=== PATIENT | male | born 1945 | race Caucasian/White ===

== ENCOUNTER → 2016-04-16 | Outpatient (CLI) | payer MEDICARE | LOC: M HL 10:54 | PROVIDERS: ATTEND Nurse Practitioner Family | DX: E11.9 Type 2 diabetes mellitus without complications (principal); E78.5 Hyperlipidemia, unspecified; F17.200 Nicotine dependence, unspecified, uncomplicated ==

== ENCOUNTER → 2016-07-24 | Outpatient (REF) | payer MEDICARE ==
[2016-07-24 20:28] LABS: ALBUMIN 3.6 GM/DL (3.2-5.2); ALBUMIN/GLOBULIN RATIO 1.09 (1.00-1.93); ALKALINE PHOSPHATASE 85 U/L (45-117); ALT/SGPT 33 U/L (12-78); ANION GAP 8 MEQ/L (8-16); AST/SGOT 20 U/L (15-37); BILIRUBIN,TOTAL 0.5 MG/DL (0.2-1.0); BLOOD UREA NITROGEN 18 MG/DL (7-18); CALCIUM LEVEL 8.4 MG/DL (8.8-10.2); CARBON DIOXIDE LEVEL 28 MEQ/L (21-32); CHLORIDE LEVEL 103 MEQ/L (98-107); CHOLESTEROL LEVEL 146 MG/DL (<200); CREATININE FOR GFR 0.95 MG/DL (0.70-1.30); GLOMERULAR FILTRATION RATE > 60.0 (>49); GLUCOSE, FASTING 235 MG/DL (80-110); POTASSIUM SERUM 4.3 MEQ/L (3.5-5.1); SODIUM LEVEL 139 MEQ/L (136-145); TOTAL PROTEIN 6.9 GM/DL (6.4-8.2); TRIGLYCERIDES LEVEL 123 MG/DL (<150)
== END ==
LOC: M SFHCPLAZ 12:33
PROVIDERS: ATTEND Nurse Practitioner Family
DX: E78.5 Hyperlipidemia, unspecified (principal); E11.9 Type 2 diabetes mellitus without complications

== ENCOUNTER → 2016-08-23 | Outpatient (REF) | payer MEDICARE | LOC: M LAB REF 17:02 | PROVIDERS: ATTEND Specialist | DX: C02.1 Malignant neoplasm of border of tongue (principal) ==

== ENCOUNTER → 2016-09-03 | Outpatient (CLI) | payer MEDICARE ==
--- NOTE | 2016-09-03 17:26 | REP ---
CHEST, TWO VIEWS: REASON: Hyperlipidemia. COMPARISON: None. Cardiomediastinal silhouette is within normal limits. The heart is not enlarged. The pleural angles are sharp. In the right lung midlung zone there is a small subcentimeter sized discoid density of uncertain etiology. Two frontal views were obtained and this is seen on both views. The osseous structures are within normal limits. IMPRESSION: Possible right lung lesion in the lower lobe region without priors for comparison. Consider further evaluation with chest CT. Signed by Wilfredo Alvares DO 09/04/2016 10:07 A
== END ==
LOC: M RAD 13:26 → M LAB 13:26
PROVIDERS: ATTEND Nurse Practitioner Family
DX: R93.8 Abnormal findings on diagnostic imaging of other specified body structures (principal); E78.5 Hyperlipidemia, unspecified; F17.200 Nicotine dependence, unspecified, uncomplicated

== ENCOUNTER → 2016-09-14 | Outpatient (CLI) | payer MEDICARE ==
[~2016-09-14] MED LIST: ALBU17IN INH; ASPI1TAB PO; FLOM5CAP PO; HYDR1SOL PO; IBUP-1114 PO; LIPI20TA PO; LISI-542 PO; LORA10TA2 PO; METF500T13 PO; PERC5TAB12 PO; SILV40CR EXT
[2016-09-14 12:53] LABS: MEAN CORPUSCULAR HEMOGLOBIN 31.5 pg (27.0-33.0); MEAN CORPUSCULAR HGB CONC 35.2 g/dl (32.0-36.5); MEAN CORPUSCULAR VOLUME 89.5 fl (80.0-96.0); RED CELL DISTRIBUTION WIDTH 13.4 % (11.5-14.5); WHITE BLOOD COUNT 7.3 K/mm3 (4.0-10.0)
== END ==
LOC: M LAB 11:40
PROVIDERS: ATTEND Anesthesiology
DX: Z01.812 Encounter for preprocedural laboratory examination (principal); R93.8 Abnormal findings on diagnostic imaging of other specified body structures; E78.5 Hyperlipidemia, unspecified; E11.9 Type 2 diabetes mellitus without complications

== ENCOUNTER → 2016-09-14 | Outpatient (CLI) | payer MEDICARE ==
--- NOTE | 2016-09-14 11:44 | REP ---
Clinical: Abnormal chest x-ray findings. Comparison: X-ray dated 09/03/2016. Findings: The bilateral lung grullon are essentially well-aerated and clear. The suspected lesion in the right mid lung zone corresponds to a calcified granuloma in the right middle lobe along with calcified right hilar lymph nodes compatible with prior granulomatous disease. No acute pulmonary parenchymal consolidation, significant nodule or mass lesion. Tracheobronchial tree is patent. No pleural effusion/reaction or pneumothorax. Mediastinum is grossly unremarkable with mild atherosclerotic changes to the coronary arteries and thoracic aorta noted. Surrounding musculoskeletal structures are intact. Limited upper abdomen demonstrates large cystic changes posterior to the left kidney which may reflect renal cysts. Impression: 1. Suspicious abnormality on recent chest x-ray correlates to chronic calcified granuloma and associated calcified mediastinal/hilar lymph nodes suggests prior granulomatous disease. 2. No acute mediastinal or pleuroparenchymal process. 3. Large cystic changes posterior to the left kidney likely renal cysts may be followed by ultrasound if necessary. Signed by Anselmo Davila MD 09/14/2016 11:36 A
== END ==
LOC: M RAD 10:35
PROVIDERS: ATTEND Nurse Practitioner Family
DX: Z01.812 Encounter for preprocedural laboratory examination (principal); R93.8 Abnormal findings on diagnostic imaging of other specified body structures; E78.5 Hyperlipidemia, unspecified; E11.9 Type 2 diabetes mellitus without complications

== ENCOUNTER 2016-09-24 09:30 | Inpatient (IN) | payer MEDICARE ==
[~2016-09-24] VITALS: Ht 177.8 cm; Wt 122.7 kg
[~2016-09-24 09:30] MED LIST changes: -IBUP-1114 PO; -LISI-542 PO; -PERC5TAB12 PO; -SILV40CR EXT
[2016-10-08] MEDS ORDERED: IBUP-1114 PO (11:44)
[2016-10-08] MEDS ORDERED: LISI-542 PO (11:44)
--- NOTE | 2016-10-18 07:37 | HPE ---
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 HISTORY OF PRESENT ILLNESS: This is a 70-year-old smoking patient with history of progressive tongue lesion that has become more and more painful on the left side of his tongue. Office evaluation included a biopsy of this, which demonstrated basal squamous cell carcinoma. PAST MEDICAL HISTORY: He has a history of some cardiac disease, as well as diabetes. MEDICATIONS: - metformin - tamsulosin - atorvastatin - aspirin. ALLERGIES: None. PHYSICAL EXAMINATION: He is a well-fed, 70-year-old, in mild distress with lesion in the mouth. Nasal cavity was clear. Oral cavity show an ulcerative 2 to 3 cm mass on the left lateral oral tongue anteriorly. Larynx was free of any masses. Bimanual palpation of the floor of the mouth revealed no masses. Palpation of the neck reveals no palpable cervical adenopathy. Breath sounds are diminished, but heard bilaterally. The heart sounds are normal. The abdomen is benign. Extremities without edema. 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 He is also followed by cardiology.
[2016-10-18] MEDS ORDERED: LR 1,000 ML IV ONE (10:00)
[2016-10-18] MEDS ORDERED: dexameTHASONE 4 MG/ML 1ML VIAL (J1100) As Ordered ONE (11:53)
[2016-10-18] MEDS ORDERED: fentaNYL 250 MCG/5 ML INJECTION (J3010) As Ordered ONE (11:53)
[2016-10-18] MEDS ORDERED: PROPOFOL 200 MG/20 ML VIAL As Ordered ONE (11:53)
[2016-10-18] MEDS ORDERED: ROCURONIUM BROMIDE 50 MG/5 ML VIAL/SYRINGE As Ordered ONE ×2 (11:53→14:04)
[2016-10-18] MEDS ORDERED: LIDOCAINE 2% INJ 100 MG/5 ML SDV (FOR ANES.) As Ordered ONE (11:53)
[2016-10-18] MEDS ORDERED: MIDAZOLAM INJ 2 MG/2 ML VIAL (J2250) As Ordered ONE (11:53)
[2016-10-18] MEDS ORDERED: LIDOCAINE W/EPINEPHRINE 1% 20ML VIAL As Ordered ONE (12:01)
[2016-10-18] MEDS ORDERED: BACITRACIN OINT 30GM As Ordered ONE (12:01)
[2016-10-18] MEDS ORDERED: METHYLENE BLUE 0.5% (5MG/ML) 10 ML AMP (PROVAYBLUE)(Q9968 PER 1MG) As Ordered ONE (12:21)
[2016-10-18] MEDS ORDERED: HYDROmorphone HCL 2 MG/ML 1ML VIAL (J1170) As Ordered ONE (13:29)
[2016-10-18] MEDS ORDERED: REMIFENTANIL 1MG 3ML VIAL As Ordered ONE (13:40)
[2016-10-18] MEDS ORDERED: ePHEDrine SULFATE 25 MG/5 ML(5MG/ML) SYRINGE As Ordered ONE (13:55)
[2016-10-18] MEDS ORDERED: PHENYLephrine HCL 500 MCG/5 ML (100MCG/ML) SYRINGE (J2370) As Ordered ONE (14:15)
[2016-10-18] MEDS ORDERED: GLYCOPYRROLATE INJ 0.2 MG/ML 2 ML VIAL As Ordered ONE (14:39)
[2016-10-18] MEDS ORDERED: NEOSTIGMINE 1MG/ML 5 ML SYRINGE (J2710) As Ordered ONE (14:39)
[2016-10-18] MEDS ORDERED: ONDANSETRON 4MG/2ML VIAL (J2405) As Ordered ONE (14:39)
[2016-10-18] MEDS ORDERED: HumaLOG INSULIN (NovoLOG) PER UNIT As Ordered ONE (16:45)
[2016-10-18] MEDS ORDERED: fentaNYL 100 MCG/2 ML INJECTION (J3010) As Ordered ONE (17:15)
[2016-10-18] MEDS: fentaNYL 100 MCG/2 ML INJECTION (J3010) IV PRN ×2 (17:16→17:21)
[2016-10-18] MEDS ORDERED: HumaLOG INSULIN (NovoLOG) PER UNIT SC ONE (17:30)
[2016-10-18] MEDS ORDERED: ONDANSETRON 4MG/2ML VIAL (J2405) IV PRN (17:30)
[2016-10-18] MEDS ORDERED: ONDANSETRON 4 MG TAB (S0181) PO PRN (17:30)
[2016-10-18] MEDS ORDERED: D5W/LR 1,000 ML IV SCH (17:30)
[2016-10-18] MEDS ORDERED: HYDROmorphone HCL 1 MG/ML SYRINGE (J1170) IV PRN (17:30)
[2016-10-18] MEDS ORDERED: PERCOCET 5MG/325MG TAB PO PRN (17:30)
[2016-10-18] MEDS ORDERED: LR 1,000 ML IV SCH (17:30)
[2016-10-18 18:20] VITALS: BP 180/74
[2016-10-18 19:00] VITALS: BP 167/75
[2016-10-18] MEDS: MORPHINE 2 MG/ML 1ML SYRINGE IV PRN (19:47)
[2016-10-18] MEDS: ceFAZolin SOD 1 GM in D5W MINI-BAG PLUS 50 ML IV SCH (19:54)
[2016-10-18 20:00] VITALS: BP 143/68
[2016-10-18 20:15] VITALS: BP 143/68
[2016-10-18] MEDS: TAMSULOSIN 0.4 MG CAP PO SCH (20:54)
[2016-10-18 22:00] VITALS: BP 154/72
[2016-10-18] MEDS: HYDROcodone/APAP LIQUID 7.5-325MG 15ML UDC (LORTAB ELIXIR) PO PRN (23:24)
[2016-10-19] VITALS (7 sets, daily range): BP systolic 139–172; BP diastolic 66–88
[2016-10-19] MEDS: ceFAZolin SOD 1 GM in D5W MINI-BAG PLUS 50 ML IV SCH ×2 (02:20→09:11)
[2016-10-19] MEDS: MORPHINE 2 MG/ML 1ML SYRINGE IV PRN ×2 (04:01→19:55)
[2016-10-19] MEDS: metFORMIN (GLUCOPHAGE) 500 MG TAB PO SCH ×2 (08:41→17:13)
[2016-10-19] MEDS: HYDROcodone/APAP LIQUID 7.5-325MG 15ML UDC (LORTAB ELIXIR) PO PRN (12:41)
[2016-10-19] MEDS ORDERED: SLF 3 ML SYR IV PRN (17:30)
[2016-10-19] MEDS: TAMSULOSIN 0.4 MG CAP PO SCH (20:57)
[2016-10-19] MEDS: SLF 3 ML SYR IV SCH (20:59)
[2016-10-19] MEDS: CEPHALEXIN SUSP POWDER 250MG/5ML BTL 100ML PO SCH (20:59)
[2016-10-20] MEDS: HYDROcodone/APAP LIQUID 7.5-325MG 15ML UDC (LORTAB ELIXIR) PO PRN (00:47)
[2016-10-20] MEDS: SLF 3 ML SYR IV SCH ×3 (05:34→21:29)
[2016-10-20 06:00] VITALS: BP 161/72
[2016-10-20] MEDS: metFORMIN (GLUCOPHAGE) 500 MG TAB PO SCH ×2 (09:41→17:20)
[2016-10-20] MEDS: CEPHALEXIN SUSP POWDER 250MG/5ML BTL 100ML PO SCH ×2 (11:19→21:30)
[2016-10-20 14:00] VITALS: BP 169/87
[2016-10-20] MEDS: MORPHINE 2 MG/ML 1ML SYRINGE IV PRN (16:04)
[2016-10-20] MEDS ORDERED: LISINOPRIL 5 MG TAB PO SCH (21:00)
[2016-10-20] MEDS ORDERED: ATORVASTATIN 20 MG TAB PO SCH (21:00)
[2016-10-20] MEDS: TAMSULOSIN 0.4 MG CAP PO SCH (21:29)
[2016-10-20 22:00] VITALS: BP 168/98
[2016-10-20 22:47] VITALS: BP 168/98
[2016-10-21] MEDS: HYDROcodone/APAP LIQUID 7.5-325MG 15ML UDC (LORTAB ELIXIR) PO PRN ×2 (00:43→06:10)
[2016-10-21 00:50] VITALS: BP 160/88
[2016-10-21 06:00] VITALS: BP 124/60
[2016-10-21] MEDS: SLF 3 ML SYR IV SCH (06:00)
[2016-10-21] MEDS: metFORMIN (GLUCOPHAGE) 500 MG TAB PO SCH (09:25)
[2016-10-21] MEDS: CEPHALEXIN SUSP POWDER 250MG/5ML BTL 100ML PO SCH (09:25)
[2016-10-21] MEDS: MORPHINE 2 MG/ML 1ML SYRINGE IV PRN (11:16)
[2016-10-21] MEDS ORDERED: HYDR1SOL PO (12:02)
--- NOTE | 2016-11-07 22:28 | DSES ---
DATE OF ADMISSION: 10/18/2016 DATE OF DISCHARGE: 10/22/2016 ADMITTING DIAGNOSIS: T1N0M0 squamous cell carcinoma of the oral tongue. PROCEDURES: Wide local excision of squamous cell carcinoma of the tongue with supraomohyoid neck dissection. HOSPITAL COURSE: This patient was admitted on the day of surgery for the above procedure for an identified biopsy-proven squamous cell carcinoma of the left lateral tongue. He underwent the above surgery. Was sent to progressive care unit (PCU) after the procedure for monitoring and had an unremarkable course. On day 2, his drains were removed. There was some delay in taking adequate oral diet because of the tongue surgery dysphagia associated with it. He was kept for one more day. On postoperative day 3 he was able to take a soft diet. His pain was moderate but easily managed with oral medications, and he was discharged home. Instructions were given for oral care and for followup in the office. A prescription for Hycet elixir was given. Further therapy will be based on the result of the pathology report of the neck dissection and the lymph node involvement found there.
--- NOTE | 2016-11-08 08:46 | RO ---
DATE OF PROCEDURE: 10/18/2016 PREOPERATIVE DIAGNOSIS: T2N0M0 squamous cell carcinoma of the left lateral oral tongue. POSTOPERATIVE DIAGNOSIS: T2N0M0 squamous cell carcinoma of the left lateral oral tongue. PROCEDURE: 1. Left supraomohyoid neck dissection. SURGEON: Ephraim Rubio MD TENANT RELATIONS COORDINATOR: ANESTHESIA: INDICATION: This is a patient who presents with a T2 lesion of the left oral tongue and it is planned to do a prophylactic neck dissection on that side in the upper level nodes. DESCRIPTION OF PROCEDURE: Satisfactory general endotracheal had been established for the resection of the primary of the oral tongue. After that was completed, a throat pack was placed and the patient was placed in the usual position for head and neck surgery. A horizontal incision was made three fingerbreadths below the inferior ramus of the mandible. Flaps were developed subplatysmally, superiorly and inferiorly. The flaps were continued up to the ramus of the mandible above and inferiorly down towards the thyroid cartilage. The fascia overlying the submandibular gland was included in the elevation of flaps with plans to incorporate the marginal mandibular branch of the facial nerve into the superior flap. Dissection first began by removing the lymphoid adipose tissue in the planes from the submandibular space superiorly. This included dissection of the submandibular gland. The common facial vein and common facial artery were identified and they were clamped and then ligated with the Harmonic scalpel. All soft tissue from the anterior belly of the digastric muscle was rolled posteriorly towards the gland as well. The soft tissue beneath the ramus of the mandible was divided with the Harmonic scalpel and ligated. This brought the lymphatic tissue from the superior aspect of the submandibular space inferiorly. Posteriorly, the sternomastoid muscle was identified, the fascia overlying this was divided and a plane developed anterior to the sternomastoid muscles until the carotid sheath was identified and the jugular vein was identified as well as the carotid artery. The fascia was elevated off the jugular vein with the surrounding tissue and mobilized anteriorly to join the dissection taking place around the submandibular gland. The superior portion of the omohyoid muscle was identified inferiorly and posteriorly, and again, all soft tissue in the triangle between the omohyoid muscle and the sternomastoid muscle was developed as part of the specimen and rolled superiorly and anteriorly by cutting and clamping and using the Harmonic scalpel for division of the tissue. As the specimen was rolled superiorly, the lingual nerve was identified inferiorly. The specimen was continued to be dissected from the posterior and inferior aspect of the dissection. Again, the facial artery and vein were counted, these were clamped and ligated. The Harmonic scalpel was used to divide them. Finally, once the dissection posteriorly joined that around the submandibular gland, final dissection was done in the superior posterior aspect of the soft tissue beneath the ramus of the mandible. The specimen was clamped and cut and then ligated with the Harmonic scalpel. The specimen was then sent for permanent section. The wound was copiously irrigated and small vessels that were identified bleeding were cauterized. A #10 TLS drain was inserted into a separate stab incision and laid into the wound. The incision was closed using interrupted #3-0 Vicryl sutures to close the platysmal layer. The subcutaneous layer was closed with a #4-0 chromic suture. Padmini were used to close the skin. The drain was sewn in place with a #2-0 silk suture and hooked to suction. He tolerated this procedure well and was sent to recovery in satisfactory condition and he will be seen back after he is discharged from the hospital in the clinic. He will be admitted for an overnight stay.
--- NOTE | 2016-11-08 08:55 | RO ---
DATE OF PROCEDURE: 10/18/2016 PREOPERATIVE DIAGNOSIS: T2N0 squamous cell carcinoma of the left lateral oral tongue. POSTOPERATIVE DIAGNOSIS: T2N0 squamous cell carcinoma of the left lateral oral tongue. PROCEDURE: 1. Wide local excision with partial glossectomy of the squamous cell carcinoma of the tongue. 2. Supraomohyoid neck dissection. SURGEON: Ephraim Rubio MD APPLICATION SECURITY CONSULTANT: Manuel Hamilton MD ANESTHESIA: INDICATION: This is a patient who presents with a painful lesion of the left lateral tongue, biopsy proven squamous cell carcinoma. The lesion was approximately 3-4 cm on the lateral mobile oral tongue. DESCRIPTION OF PROCEDURE: Satisfactory general endotracheal anesthesia administered. The patient was placed in the usual position for head and neck surgery. A throat pack was placed. A side biting mouth gag was first inserted into the mouth. The tongue was protruded by using a towel clip to grasp the anterior tongue and mobilize it as far forward as possible. A #2-0 silk stitch was placed in the posterior tongue to pull the posterior tongue forward to give it adequate exposure to bring the lesion completely out of the oral cavity for operative intervention. Using methylene blue, a 2 cm margin was created around the obvious ulcerative lesion, which approximately 3-4 cm on the lateral border, extending only slightly on the ventral surface of the tongue toward the floor of the mouth. The plan was to take a niko shaped wedge with adequate margins incorporating the entire lesion. Using cut and cautery, intention manzanares were first made through the mucosa. Once this was done, the cut and cautery was used to being a complete excision through the mucosa and muscularis of the tongue. A wedge was resected from the tongue with vessels were either coagulated, large vessels were clamped and tied with #4-0 Vicryl suture. Once this large wedge had been resected, the most medial portion of the wedge came to just short of the midline of the tongue. The specimen was marked and then sent for frozen section and evaluation. Once the frozen came back showing that all margins were clear, reconstruction was done primarily by bringing the anterior portion of the tongue to the posterior portion of the tongue, first by approximating the muscular layers with #3-0 Vicryl suture. Once the deep layers were approximated, although this caused some shortening of the tongue, it did not lead to any loss of mobility of the tongue. The submucosa was approximated using interrupted #4-0 chromic suture. The mucosa itself was approximated using an interrupted #3-0 chromic suture. Completing this, 0.50% Marcaine was injected into the tongue for pain management. There was no significant bleeding or hematoma noted. A throat pack was placed and then preparation was made for neck surgery. This will be dictated separately from this report.
[2017-01-07] MEDS ORDERED: SILV40CR EXT (15:43)
[2017-01-07] MEDS ORDERED: PERC5TAB12 PO (15:44)
== END 2016-10-21 13:20 | disposition home or self-care (01) | DRG 133 ==
LOC: M OR 10-18 09:47 → M PCU 10-18 18:18 → M MSPAV 10-20
PROVIDERS: ADMIT Specialist; ATTEND Specialist
PROC: 07B20ZX Excision of Left Neck Lymphatic, Open Approach, Diagnostic (ICD-10-PCS; principal; 2016-10-18 12:00)
PROC: 0CB70ZZ Excision of Tongue, Open Approach (ICD-10-PCS; 2016-10-18 12:00)
DX: C02.1 Malignant neoplasm of border of tongue (principal); C77.0 Secondary and unspecified malignant neoplasm of lymph nodes of head, face and neck; C02.8 Malignant neoplasm of overlapping sites of tongue; F17.200 Nicotine dependence, unspecified, uncomplicated; Z79.82 Long term (current) use of aspirin; Z79.899 Other long term (current) drug therapy

== ENCOUNTER → 2016-11-13 | Outpatient (CLI) | payer MEDICARE ==
[~2016-11-13] MED LIST changes: +IBUP-1114 PO; +LISI-542 PO; +PERC5TAB12 PO; +SILV40CR EXT
--- NOTE | 2016-11-14 11:14 | RADONC ---
RADIATION ONCOLOGY CONSULTATION NOTE DATE: 11/13/2016 CHART NUMBER: [id number] DIAGNOSIS: Lateral tongue cancer. STAGE: ROOPA, T2N2M0. ECOG PERFORMANCE STATUS: 0 CONSULTATION NOTE: Mr. Hilton is a 70-year-old white male with the diagnosis of what appears to be a stage ROOPA, T2N2M0, well to moderately differentiated squamous cell carcinoma of the left lateral tongue, who is presenting to us status post excision and left supraomohyoid neck dissection for consideration of postoperative radiation therapy in attempt to achieve local control and cure. HISTORY OF PRESENT ILLNESS: The patient was in his usual state of health until he noticed some pain over his left lateral tongue. On 10/18/2016, the patient underwent left tongue excision as well as additional excision and left supraomohyoid neck dissection. Pathology revealed a 4 cm x 3.2 cm x 1 cm submucosal moderate to well-differentiated squamous cell carcinoma of the tongue. The inked margin of resection was negative. As noted above, further excision was undertaken. In addition, the patient had a left supraomohyoid neck dissection in which a total of four lymph nodes were identified. Three were partially effaced by metastatic squamous cell carcinoma. The patient has done well since surgery and is now presenting for discussion of postoperative radiation therapy. PAST MEDICAL HISTORY: The patient's past medical history is positive for; Hypertension. Diabetes. Urinary tract infections. Asthma. Heart problems. Arthritis. Bronchitis. Cataracts. He has a history of kidney stones. ALLERGIES: The patient has no known drug allergies. SOCIAL HISTORY: The patient has smoked half-a-pack of cigarettes per day for 40 years. He reports that he quit smoking this year but continues to smoke now and then. He does not abuse alcohol. FAMILY HISTORY: The patient's family history is positive for a mother with leukemia. REVIEW OF SYSTEMS: The patient's review of systems is positive for continued weight gain since the beginning of the year when he says he stop smoking. He gets tired frequently. His review of systems is otherwise noncontributory. He denies nausea, vomiting, fevers, chills, night sweats, diplopia, headaches, anxiety or depression, anorexia, weight loss, visual disturbances, chest pain, urinary or bowel difficulties, bone pain, or neurological problems. PHYSICAL EXAMINATION: The patient is a well-developed, well-nourished white male in no acute distress. HEENT: Exam is normocephalic, atraumatic. Extraocular movements are intact. Examination of the patient's oral cavity reveals a healed surgical scar present over his left lateral tongue. He is edentulous. There are no other areas of nodularity, ulceration or recurrent disease. There is no palpable preauricular, cervical, supraclavicular, infraclavicular, axillary, or inguinal lymphadenopathy present. His lungs are clear to auscultation and percussion. His heart has regular rate and rhythm. His abdomen is benign with no hepatosplenomegaly, masses, or tenderness. Skeletal examination reveals no tenderness to pressure or percussion of the bony skeleton. Extremities reveal no clubbing, cyanosis, or edema. Neurologic exam is grossly intact. MEDICAL NECESSITY: IMRT/IGRT is clinically indicated for the highly conformal dose planning required. The target volume is in close proximity to critical structures, such as the normal brain, brainstem, eyes, optic nerves, spinal cord, parotid glands, and mandible. The volume of interest must be covered with narrow margins to adequately protect immediately adjacent structures. The plan requires interpretation of complex testing such as CT localization. As noted above, special planning (IMRT) and localizing (IGRT) is required and essential to maximally protect sensitive normal tissue structures which cannot be accomplished using conventional 3-dimensional planning. ASSESSMENT: The patient clearly appears to be a candidate for postoperative radiation therapy, and I have so informed him. I have discussed with the patient in detail the potential benefits as well as possible acute and chronic sequelae of external beam radiation therapy. We discussed logistics of treatment planning, simulation, and subsequent fractionated daily radiation treatments. In addition, we discussed the techniques of IMRT for treatment planning in order to reduce radiation to the normal structures thereby reducing long-term and short-term side effects while increasing the chance of local control and cure. In addition, we discussed the possibility of systemic therapy to aid in our treatment. The patient has absolutely refused to consider chemotherapy at this point. He tells me that he has known many people in his life who have undergone chemotherapy and it destroyed their quality of life. He, therefore, would never consider chemotherapy. In addition, I have recommended that the patient consider a feeding tube. I discussed all the issues with regards to a PEG tube, but the patient again refuses to even consider that at this time. He tells me that if nothing is broken, no sense in trying to fix it. If he should develop difficulty swallowing during the treatment, he says he would consider it at that point. We have, therefore, not set the patient up for surgical consultation for PEG feeding tube. In light of the fact that he is edentulous, we have not set him up for any dental consult either. The patient does not yet have a PET scan done, and I am setting him up for a PET scan for further staging purposes at this point. Once again, in summary, I have recommended IMRT external beam radiation therapy postoperatively in an attempt to achieve local control and cure. At this point, the patient appears to be a good candidate for that treatment. I am scheduling a PET scan for further staging purposes. Once again, the patient has refused surgical consultation for placement of a PEG tube. He has also refused med/onc consultation for discussion of systemic therapy. Thank you for allowing us to participate in the care of this very pleasant gentleman. I will keep you informed as to any new developments as they occur. cc: MD Paula Ramos FNP
== END ==
LOC: M ONCR 10:02
PROVIDERS: ATTEND Radiology Radiation Oncology
DX: C02.1 Malignant neoplasm of border of tongue (principal)

== ENCOUNTER → 2016-11-21 | Outpatient (CLI) | payer MEDICARE ==
--- NOTE | 2016-11-21 17:03 | REP ---
PET/CT: History: Initial staging, squamous cell carcinoma of the tongue. Status post partial glossectomy and left supraomohyoid neck dissection. Comparisons: There is a chest CT study 09/14/2016. TECHNIQUE: 50 minutes following the intravenous injection of a 8.3 mCi dose of F-18 FDG, three-dimensional PET scintigraphy is acquired from the skull base to the proximal thighs. Triplanar noncontrast CT scanning is acquired through the same anatomic range for attenuation correction, and image registration with scan parameters optimized to minimize radiation exposure to the patient. PET scintigraphy and CT datasets were fused and displayed on a workstation with multiplanar and projection display capability. PET/CT Findings: There is minimal non suspicious and somewhat diffuse uptake in the remaining tongue consistent with postoperative change. Maximum standard uptake value in the range of 2.5-3.1. There is also some low level FDG accumulation in the operative bed of the left neck maximum standard uptake value 3.2. No abnormal hypermetabolic uptake is seen within the chest. Calcific granulomatous residuals are noted on the right. No abnormal hypermetabolic uptake is seen in the abdomen or pelvis. There is a peripheral cyst posterior to the left kidney measuring 10.0 cm in greatest diameter. There is moderate diffuse fatty infiltration of the liver. Impression: Minimal postoperative uptake in the remaining tongue and left neck soft tissues. No suspicious hypermetabolic focus. Signed by Trey Sherman MD 11/21/2016 06:40 P
== END ==
LOC: M PLARAD 09:59
PROVIDERS: ATTEND Radiology Radiation Oncology
DX: C02.9 Malignant neoplasm of tongue, unspecified (principal)
CPT/HCPCS: 78815; A9552

== ENCOUNTER 2016-11-26 13:50 | Outpatient (RCR) | payer MEDICARE ==
[~2016-11-26 13:50] MED LIST changes: -PERC5TAB12 PO; -SILV40CR EXT
--- NOTE | 2016-11-27 07:49 | RADONC ---
RADIATION ONCOLOGY SIMULATION NOTE DATE: 11/26/2016 CHART NUMBER: [id number]. SIMULATION NOTE: Mr. Hilton was taken to the CT scan for CT simulation of his head and neck field. CT was accomplished without difficulty or discomfort. Radiation treatment planning is underway and radiation treatments will begin subsequently. An immobilization device including a mask was made and will be used throughout the course of treatment. It was also constructed without difficulty or discomfort. I was physically present throughout the course of CT simulation.
--- NOTE | 2016-12-11 09:35 | RADONC ---
RADIATION ONCOLOGY PROGRESS NOTE DATE: 12/10/2016 CHART NUMBER: [id number] Mr. Hilton is presently at a dose of 880 cGy to his oral cavity and is tolerating treatments quite well at this point with no complaints related to his radiation therapy. He is having no difficulty swallowing or other problems. REVIEW OF SYSTEMS: The patient's review of systems is noncontributory. He denies nausea, vomiting, fevers, chills, night sweats, diplopia, headaches, anxiety or depression, anorexia, weight loss, visual disturbances, chest pain, urinary or bowel difficulties, bone pain or neurological problems. PHYSICAL EXAMINATION: The patient's skin is in good condition with no evidence of radiation change present. There is no moist or dry desquamation. His oral cavity shows some mild mucositis. The remainder of his physical exam remains unchanged. Mr. Hilton is tolerating treatments quite well and radiation will continue as scheduled.
[2017-01-07] MEDS ORDERED: SILV40CR EXT (15:43)
[2017-01-07] MEDS ORDERED: PERC5TAB12 PO (15:44)
--- NOTE | 2017-01-16 08:55 | RADONC ---
RADIATION ONCOLOGY PROGRESS NOTE DATE: 01/14/2017 CHART NUMBER: [id number] PROGRESS NOTE: Mr. Hilton is presently at a dose of 6160 cGy to his tongue and left neck and overall is tolerating his treatments quite well with no significant difficulties related to his radiation therapy other than some difficulty swallowing. REVIEW OF SYSTEMS: The patient's review of systems is positive for some discomfort upon swallowing but overall is otherwise noncontributory. He denies nausea, vomiting, fevers, chills, night sweats, diplopia, headaches, anxiety or depression, anorexia, weight loss, visual disturbances, chest pain, urinary or bowel difficulties, bone pain, or neurological problems. PHYSICAL EXAMINATION: The patient's skin is in good condition with some radiation tanning and erythema present with no evidence of moist or dry desquamation. His oral cavity shows some mucositis. The remainder of his physical exam is largely unchanged. Mr. Hilton is tolerating his treatments quite well, and radiation will continue as scheduled.
== END 2016-12-15 ==
LOC: M ONCR 13:50
PROVIDERS: ATTEND Radiology Radiation Oncology
DX: C02.1 Malignant neoplasm of border of tongue (principal)

== ENCOUNTER → 2016-11-26 | Outpatient (CLI) | payer MEDICARE ==
[2016-11-26 15:07] LABS: MEAN CORPUSCULAR HEMOGLOBIN 30.8 pg (27.0-33.0); MEAN CORPUSCULAR HGB CONC 34.1 g/dl (32.0-36.5); MEAN CORPUSCULAR VOLUME 90.3 fl (80.0-96.0); RED CELL DISTRIBUTION WIDTH 13.3 % (11.5-14.5); WHITE BLOOD COUNT 6.7 K/mm3 (4.0-10.0)
== END ==
LOC: M RAD 13:47
PROVIDERS: ATTEND Radiology Radiation Oncology
DX: C02.1 Malignant neoplasm of border of tongue (principal)

== ENCOUNTER → 2017-02-20 | Outpatient (CLI) | payer MEDICARE ==
[~2017-02-20] MED LIST changes: +PERC5TAB12 PO; +SILV40CR EXT
--- NOTE | 2017-02-21 11:21 | RADONC ---
RADIATION ONCOLOGY FOLLOWUP NOTE DATE: 02/20/2017 CHART NUMBER: [id number]. DIAGNOSIS: Lateral tongue cancer. STAGE: Stage IV A, T2N0M0. ECOG PERFORMANCE STATUS: Zero. FOLLOWUP NOTE: Mr. Hilton is a very pleasant, 71-year-old white male with the diagnosis of a stage IV A, T2N0M0, well to moderately differentiated squamous cell carcinoma of the left lateral tongue who is presenting to us today for routine followup visit 1 month post completion of external beam radiation therapy. The patient presents today reporting that generally he is doing quite well. He continues to eat solid foods as well as liquids without any significant difficulty. He reports no pain in the oral cavity. In addition, the patient was just seen by Dr. Rubio, the head and neck specialist, who reported no evidence of residual disease. He is seeing Dr. Rubio every 6 weeks or so. The patient's review of systems is positive for some continued weight loss but overall he is doing quite well. He denies nausea, vomiting, fevers, chills, night sweats, diplopia, headaches, anxiety, depression, anorexia, visual disturbances, chest pain, urinary or bowel difficulties, bone pain or neurological problems. PHYSICAL EXAMINATION: The patient is a well-developed, well-nourished, white male in no acute distress, who now weighs 238 pounds, down approximately 6 pounds since completion of treatment. HEENT exam is normocephalic, atraumatic. Extraocular movements are intact. Examination of the patient's oral cavity reveals no evidence of nodularity, ulceration or residual disease. There is an area of scar present over the patient's tongue consistent with his history. There is no palpable preauricular, cervical, supraclavicular, infraclavicular or axillary lymphadenopathy present. His lungs are clear to auscultation and percussion. His heart has regular rate and rhythm. ASSESSMENT: The patient is clinically JESSIE at this time. He will continue his close followup with Dr. Rubio, and will be seen by us again in 6 months for routine followup as well. cc: MD Paula Ramos, ORLY
== END ==
LOC: M ONCR 14:33
PROVIDERS: ATTEND Radiology Radiation Oncology
DX: Z08 Encounter for follow-up examination after completed treatment for malignant neoplasm (principal); Z85.810 Personal history of malignant neoplasm of tongue

== ENCOUNTER → 2017-04-22 | Outpatient (REF) | payer MEDICARE ==
[2017-04-22 16:08] LABS: MALB URINE SIEMENS 32.9 MG/L; MAU/CREAT RATIO 11.1 MCG/MG (0.0-30.0)
== END ==
LOC: M SFHCPLAZ 15:25
DX: E11.65 Type 2 diabetes mellitus with hyperglycemia (principal)
CPT/HCPCS: 82043

== ENCOUNTER → 2018-04-21 | Outpatient (REF) | payer MEDICARE ==
[~2018-04-21] MED LIST changes: +FLOM0.4C39 PO; -FLOM5CAP PO; +LORA-243 PO; -LORA10TA2 PO
[2018-04-21 19:33] LABS: CREATININE, URINE 95.9 MG/DL; MALB URINE SIEMENS 10.2 MG/L; MAU/CREAT RATIO 10.6 MCG/MG (0.0-30.0)
[2018-04-21 19:42] LABS: BLOOD UREA NITROGEN 19 MG/DL (7-18); C REACTIVE PROTEIN QUANTITATIV < 0.30 MG/DL (0.00-0.30); CALCIUM LEVEL 8.7 MG/DL (8.8-10.2); CARBON DIOXIDE LEVEL 27 MEQ/L (21-32); CHLORIDE LEVEL 103 MEQ/L (98-107); CREATININE FOR GFR 0.66 MG/DL (0.70-1.30); GLOMERULAR FILTRATION RATE > 60.0 (>42); GLUCOSE, FASTING 87 MG/DL (70-100); POTASSIUM SERUM 4.2 MEQ/L (3.5-5.1); SODIUM LEVEL 137 MEQ/L (136-145); URIC ACID 3.1 MG/DL (3.5-7.2)
[2018-04-21 20:34] LABS: HEMOGLOBIN A1c 6.2 %
== END ==
LOC: M SFHCPLAZ 15:06
PROVIDERS: ATTEND Family Medicine
DX: M13.0 Polyarthritis, unspecified (principal); E11.9 Type 2 diabetes mellitus without complications; N40.1 Benign prostatic hyperplasia with lower urinary tract symptoms
CPT/HCPCS: 36415; 80048; 82043; 83036; 84550; 85652; 86140; G0103

== ENCOUNTER → 2018-08-18 | Outpatient (CLI) | payer MEDICARE ==
[~2018-08-18] MED LIST changes: -ASPI1TAB PO; +ASPI81TA26 PO
--- NOTE | 2018-08-18 15:49 | REP ---
Renal ultrasound History: Hematuria The right kidney measures 6.3 cm in transverse by 5.7 cm in AP by 13 cm in cephalocaudal dimensions. The left kidney measures 5.6 cm in transverse by 5.1 cm in AP by 12.9 cm in cephalocaudal dimensions. A 3.1 cm cyst is present in the upper pole of the right kidney. There is no hydronephrosis or mass. A large septated area is present between the left kidney and spleen. This measures 11.4 body 0.3 x 10.5 cm. There are no filling defects in the urinary bladder. Impression: 1. 3.1 cm right renal cyst. 2. There is a 11.4 cm septated area between the left kidney and spleen. CT may be helpful for further evaluation. Electronically Signed by Zay Morales MD 08/18/2018 03:41 P
== END ==
LOC: M RAD 14:50
PROVIDERS: ATTEND Family Medicine
DX: N28.1 Cyst of kidney, acquired (principal); N13.9 Obstructive and reflux uropathy, unspecified

== ENCOUNTER → 2018-08-18 | Outpatient (REF) | payer MEDICARE | LOC: M SFHCPLAZ 09:55 | PROVIDERS: ATTEND Family Medicine | DX: N13.9 Obstructive and reflux uropathy, unspecified (principal) | CPT/HCPCS: 51798; 87088; 87186; G0463 ==

== ENCOUNTER → 2018-09-04 | Outpatient (REF) | payer MEDICARE ==
[2018-09-04 13:34] LABS: APPEARANCE, URINE CLEAR (CLEAR); BACTERIA, URINE AUTO NEGATIVE (NEGATIVE); BILIRUBIN, URINE AUTO NEGATIVE (NEGATIVE); BLOOD, URINE BLOOD NEGATIVE (NEGATIVE); COLOR, URINE YELLOW (YELLOW); GLUCOSE, URINE (UA) AUTO NEGATIVE (NEGATIVE); KETONE, URINE AUTO NEGATIVE (NEGATIVE); LEUKOCYTE ESTERASE, URINE AUTO NEGATIVE (NEGATIVE); MUCUS, URINE SMALL (NEGATIVE); NITRITE, URINE AUTO NEGATIVE (NEGATIVE); PROTEIN, URINE AUTO NEGATIVE (NEGATIVE); RBC, URINE AUTO 1 /HPF (0-3); SPECIFIC GRAVITY URINE AUTO 1.025 (1.002-1.035); SQUAMOUS EPITHELIAL CELL UR AU 1 /HPF (0-6); UROBILINOGEN, URINE AUTO 0.2 mg/dL (0.0-2.0); WBC, URINE AUTO 1 /HPF (0-3)
== END ==
LOC: M SMT 13:02
PROVIDERS: ATTEND Urology
DX: N39.0 Urinary tract infection, site not specified (principal)

== ENCOUNTER → 2018-12-22 | Outpatient (REF) | payer MEDICARE ==
[2018-12-22 16:26] LABS: APPEARANCE, URINE CLOUDY (CLEAR); BACTERIA, URINE AUTO 2+ (NEGATIVE); BILIRUBIN, URINE AUTO NEGATIVE (NEGATIVE); BLOOD, URINE BLOOD 1+ (NEGATIVE); COLOR, URINE YELLOW (YELLOW); GLUCOSE, URINE (UA) AUTO NEGATIVE (NEGATIVE); KETONE, URINE AUTO NEGATIVE (NEGATIVE); LEUKOCYTE ESTERASE, URINE AUTO 3+ (NEGATIVE); MUCUS, URINE SMALL (NEGATIVE); NITRITE, URINE AUTO NEGATIVE (NEGATIVE); PROTEIN, URINE AUTO NEGATIVE (NEGATIVE); RBC, URINE AUTO 19 /HPF (0-3); SPECIFIC GRAVITY URINE AUTO 1.019 (1.002-1.035); SQUAMOUS EPITHELIAL CELL UR AU 0 /HPF (0-6); UROBILINOGEN, URINE AUTO 0.2 mg/dL (0.0-2.0); WBC, URINE AUTO TNTC /HPF (0-3)
== END ==
LOC: M SFHCPLAZ 15:31
PROVIDERS: ATTEND Family Medicine
DX: R30.0 Dysuria (principal)

== ENCOUNTER → 2020-02-01 | Outpatient (REF) | payer MEDICARE ==
[2020-02-01 18:12] LABS: HEMATOCRIT 45.9 % (42.0-52.0); HEMOGLOBIN 14.7 g/dl (13.5-17.5); MEAN CORPUSCULAR HEMOGLOBIN 29.7 pg (27.0-33.0); MEAN CORPUSCULAR VOLUME 92.7 fl (80.0-96.0); PLATELET COUNT, AUTOMATED 233 10^3/uL (150-450); RED BLOOD COUNT 4.95 10^6/uL (4.30-6.10); WHITE BLOOD COUNT 7.4 10^3/uL (4.0-10.0)
[2020-02-01 18:33] LABS: HEMOGLOBIN A1c 5.8 %
[2020-02-01 18:35] LABS: ALBUMIN 4.2 GM/DL (3.2-5.2); ALT/SGPT 32 U/L (12-78); BILIRUBIN,TOTAL 0.5 MG/DL (0.2-1.0); BLOOD UREA NITROGEN 16 MG/DL (7-18); CARBON DIOXIDE LEVEL 28 MEQ/L (21-32); CHLORIDE LEVEL 107 MEQ/L (98-107); CHOLESTEROL LEVEL 199 MG/DL (<200); CHOLESTEROL RISK RATIO 3.491 (<5); CREATININE FOR GFR 0.71 MG/DL (0.70-1.30); GLOMERULAR FILTRATION RATE > 60.0 (>42); GLUCOSE, FASTING 96 MG/DL (70-100); HDL CHOLESTEROL 57 MG/DL (>40); LDL CHOLESTEROL 123 MG/DL (<100); NON-HDL-C 142 MG/DL; POTASSIUM SERUM 4.1 MEQ/L (3.5-5.1); SODIUM LEVEL 141 MEQ/L (136-145); TOTAL PROTEIN 6.9 GM/DL (6.4-8.2); TRIGLYCERIDES LEVEL 96 MG/DL (<150)
[2020-02-01 18:41] LABS: MALB URINE SIEMENS 40.1 MG/L; MAU/CREAT RATIO 19.4 MCG/MG (0.0-30.0)
== END ==
LOC: M SFHCPLAZ 15:57
PROVIDERS: ATTEND Physician Assistant
DX: E78.5 Hyperlipidemia, unspecified (principal); J44.9 Chronic obstructive pulmonary disease, unspecified; E11.9 Type 2 diabetes mellitus without complications; Z12.5 Encounter for screening for malignant neoplasm of prostate
CPT/HCPCS: 36415; 80053; 80061; 82043; 83036; 85027; G0103

== ENCOUNTER → 2020-03-29 | Outpatient (CLI) | payer MEDICARE ==
--- NOTE | 2020-03-30 23:47 | ECWPNPC ---
PATIENT NAME: NIVIA CASTANEDA : 1945 GENDER: MALE VISIT DATE: 03/29/2020 DISCHARGE DATE: 03/29/20 1219 VISIT LOCKED DATE TIME: PHYSICIAN: JACKELYN FITCH PHYSICIAN PAGER NO: ACTIVE RESOURCE: JACKELYN FITCH REASON FOR APPOINTMENT 1. CHRONIC HIP,LOW BACK HISTORY OF PRESENT ILLNESS GENERAL: 74-YEAR-OLD GENTLEMAN WITH LONG HISTORY OF CHRONIC LOW BACK PAIN. STATES THIS BEGAN APPROXIMATELY 30 YEARS AGO. REPORTING SIGNIFICANT INCREASE IN PAIN OVER THE PAST FEW YEARS. PAIN IS LOCATED ACROSS THE LOWER BACK AREA. PAIN IS AGGRAVATED BY WALKING. 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 UNSURE WHAT CAUSED THIS ALTHOUGH PATIENT STATES HE HAD A SERIOUS INFECTION IN HIS LEG. CURRENTLY BEING FOLLOWED FOR THROAT CANCER. FINISHED RADIATION THERAPY AND CHEMOTHERAPY THE END OF 2019. HE NEEDS A BIOPSY ON HIS RIGHT FACIAL LESION AND ANOTHER PLACE THE PATIENT IS NOT QUITE SURE WHERE. DENIES BOWEL OR BLADDER INCONTINENCE. DENIES SADDLE PARESTHESIAS. REPORTING RESTLESS LEG SYNDROMES AT NIGHT BUT DOES STATE THAT MEDICATION PRESCRIBED BY PRIMARY CARE, HYDROXYZINE IS HELPFUL. -. FALL RISK SCREENING: SCREENING :NO FALLS REPORTED IN THE LAST YEAR PAIN SCREENING: PATIENT HAS A COMPLAINT OF ACUTE OR CHRONIC PAIN :YES LOCATION OF PAIN:LOW BACK, RIGHT HIP INTENSITY OF PAIN (SCALE OF 1 TO 10):5 WHAT DOES YOUR PAIN FEEL LIKE:ACHING, BURNING, THROBBING, SHOOTING DURATION:PERIODIC PAIN IS INCREASED BY:PROLONGED STANDING, OTHERS CANT STAND UP TOO LONG PAIN IS DECREASED BY:OTHERS NOTHING NURSING NOTE: -. PAIN CENTER INTAKE QUESTIONS: DO YOU HAVE A HISTORY OF MRSA? :NO DO YOU TAKE A BLOOD THINNERS? :NO DO YOU HAVE ANY BLEEDING DISORDERS? :NO ANY NEW NUMBNESS OR WEAKNESS IN YOUR LEGS OR ARMS? :NO ANY PACEMAKER,DEFIBRILLATOR, OR DORSAL COLUMN STIMULATOR? :NO DO YOU HAVE ANY RASHES OR OPEN SORES? :NO ARE YOU ALLERGIC TO IV DYE? :NO ARE YOU DIABETIC? :NO ANY NEW PROBLEMS WITH YOUR MEDICATIONS? :NO HAVE YOU RECEIVED A VACCINE IN THE PAST 30 DAYS? :NO DO YOU PLAN TO RECEIVE A VACCINE IN THE NEXT 21 DAYS? :NO DO YOU NEED ANY PRESCRIPTION? :NO DO YOU TAKE ANY IMMUNOSUPPRESSIVE MEDICATIONS? :NO IS THERE A CHANCE YOU COULD BE ? :NO ARE YOU BREAST FEEDING? :NO CURRENT MEDICATIONS TAKING LORATADINE 10 MG TABLET 1 TABLET ORALLY ONCE A DAY NEEDED TAKING FINASTERIDE 5 MG TABLET 1 TABLET ORALLY ONCE A DAY AT BEDTIME TAKING DOXAZOSIN MESYLATE 1 MG TABLET 1 TABLET ORALLY BEFORE BEDTIME TAKING HYDROXYZINE HCL 25 MG TABLET 1-2 TABLET NEEDED ORALLY BEFORE BED TIME TAKING BENZOCAINE 20 % AEROSOL 1 APPLICATION NEEDED EXTERNALLY TWICE A DAY NOT-TAKING MULTIVITAMINS - TABLET 1 TABLET ORALLY ONCE A DAY NOT-TAKING TYLENOL 8 HOUR 650 MG TABLET EXTENDED RELEASE 2 TABLETS NEEDED ORALLY EVERY 8 HRS NOT-TAKING ASPIRIN ADULT LOW STRENGTH 81 MG TABLET DELAYED RELEASE 1 TABLET ORALLY ONCE A DAY NOT-TAKING COLCHICINE 0.6 MG TABLET 1 TABLET ORALLY BID, NOTES: FOR HAND SWELLING NOT-TAKING PILOCARPINE HCL 5 MG TABLET 1 TABLET ORALLY THREE TIMES A DAY NOT-TAKING METFORMIN HCL 500 MG TABLET 1 TABLET WITH MEALS ORALLY TWICE A DAY NOT-TAKING KETOCONAZOLE 2 % CREAM 1 APPLICATION TO AFFECTED AREA EXTERNALLY ONCE A DAY, NOTES: PHARMACY. PLEASE HAVE PT GET OTC CLOTRIMAZOLE IF CHEAPER NOT-TAKING GABAPENTIN 100 MG CAPSULE 2 CAPSULE ORALLY FOUR TIMES DAILY NOT-TAKING DOXYCYCLINE HYCLATE 100 MG CAPSULE 1 CAPSULE ORALLY BID NOT-TAKING LEVOFLOXACIN 500 MG TABLET 1 TABLET ORALLY ONCE A DAY NOT-TAKING LEVOFLOXACIN 500 MG TABLET 1 TABLET ORALLY ONCE A DAY NOT-TAKING PREDNISONE 20 MG TABLET 2 TABLET ORALLY ONCE A DAY MEDICATION LIST REVIEWED AND RECONCILED WITH THE PATIENT PAST MEDICAL HISTORY KIDNEY STONE HEMATURIA, GROSS DYSURIA ELEVATED PSA SEASONAL ALERGIES DIABETES HYPERLIPIDEMIA SQUAMOUS CELL CARCINOMA OF TONGUE ALLERGIES SHELLFISH: ANAPHYLAXIS - ALLERGY SURGICAL HISTORY CATARACTS, BILATERAL AT [facility] STEEL REMOVAL FROM BOTH EYES STEEL REMOVAL FROM RIGHT HAND MIDDLE FINGER JOINT THROAT SURGERY AND RADIATION FAMILY HISTORY FATHER: 50 YRS, COMPLICATIONS FROM , [place] DISEASE MOTHER: , LEUKEMIA, UNKNOWN AGE SIBLINGS: UNKNOWN, SISTER LIVING RHEUMATOID ARTHRITIS 1/2 BROTHER (MATERNAL) LIVING AND WELL 1/2 BROTHER (MATERNAL) FROM [place] AT AGE 40S 1/2 SISTER (MATERNAL ,) HX OF DM, UNKNOWN CAUSE OF SON(S): 1 SON HAS KIDNEY STONES 1 BROTHER(S) , 1 SISTER(S) - HEALTHY. 3 SON(S) - HEALTHY. SOCIAL HISTORY GENERAL: TOBACCO USE ARE YOU A:FORMER SMOKER HOW LONG HAS IT BEEN SINCE YOU LAST SMOKED?3-6 MONTHS LATEX QUESTIONNAIRE LATEX ALLERGY : HAVE YOU EVER DEVELOPED ANY TYPE OF REACTION AFTER HANDLING LATEX PRODUCTS SUCH RUBBER GLOVES, CONDOMS, DIAPHRAGMS, BALLOONS, SOCKS, OR UNDERWEAR?NO LATEX ALLERGY : HAVE YOU EVER DEVELOPED ANY TYPE OF REACTION DURING OR AFTER DENTAL APPOINTMENT, VAGINAL/RECTAL EXAMINATION, SURGICAL PROCEDURE, OR ANY OTHER EXPOSURE?NO LATEX RISK : HAVE YOU EVER HAD ANY DIFFICULTY BREATHING OR HIVES AFTER EATING OR HANDLING ANY FRUITS, OR VEGETABLES; SUCH KIWI, BANANAS, STONE FRUITS, OR CHESTNUTSNO LATEX RISK : DO YOU HAVE A PREVIOUS PERSONAL HISTORY OF MORE THAN NINE SURGERIES, SPINA BIFIDA, OR REPEATED CATHERIZATIONS? NO LATEX RISK : ARE YOU FREQUENTLY EXPOSED TO LATEX PRODUCTS IN YOUR OCCUPATION?NO DATE ASKED : 03/29/2020 LUNG CANCER SCREENING SMOKING STATUS:CURRENT SMOKER BMI CARE GOAL FOLLOW-UP ABOVE NORMAL BMI FOLLOW-UPLIFESTYLE EDUCATION REGARDING DIET ALCOHOL SCREENING DID YOU HAVE A DRINK CONTAINING ALCOHOL IN THE PAST YEAR?NO POINTS0 INTERPRETATIONNEGATIVE RECREATIONAL DRUG USE DRUG USE?NO CAFFEINE CAFFEINE USE?YES HOW OFTEN AND HOW MUCH? 2 LITERS DAILY SEXUAL HX HAD SEX IN THE LAST 12 MONTHS (VAGINAL, ORAL, OR ANAL)?NO HAVE YOU EVER HAD AN STD?NO HIV / HEP-C SCREENING HIV TEST OFFERED TO PATIENT:NO HEP-C TEST OFFERED TO PATIENT:NO ZOROASTRIANISM NO BAHAI BELIEFS THAT WOULD IMPACT HEALTH CARE. LANGUAGE MOHAWK. LEARNING BARRIERS / SPECIAL NEEDS CHANGE FROM LAST VISIT?NO BARRIERS TO LEARNING?NO HEARING IMPAIRED?NO VISION IMPAIRED?YES :CORRECTIVE LENSES COGNITIVELY IMPAIRED?NO READINESS TO LEARN?YES LEARNING PREFERENCES?NO LEARNING CAPABILITIES PRESENT?YES EMOTIONAL BARRIERS?NO SPECIAL DEVICES?NO TICKET WRITER NEEDED?NO DOMESTIC VIOLENCE NONE. OCCUPATION: RETIRED: [employer]. DIET: REGULAR. EXERCISE: NO REGULAR EXERCISE. MARITAL STATUS: .. OTHERS AT HOME: NONE. PAIN CLINIC PFS, CLERGY, PUBLIC HEALTH REFERRALS HAS THE PATIENT BEEN EDUCATED REGARDING HIS/HER PLAN OF CARE?YES HAS THE PATIENT BEEN EDUCATED REGARDING PAIN, THE RISK FOR PAIN, THE IMPORTANCE OF EFFECTIVE PAIN MANAGEMENT, AND THE PAIN ASSESSMENT PROCESS?YES ADVANCE DIRECTIVE ADVANCE DIRECTIVE DISCUSSED WITH PATIENT:YES PT DOES NOT WANT ANY INFORMATION HOSPITALIZATION/MAJOR DIAGNOSTIC PROCEDURE NO HOSPITALIZATION HISTORY. REVIEW OF SYSTEMS CONSTITUTIONAL: ANY RECENT FEVER NO . CHILLS NO . WEIGHT CHANGE OF UNKNOWN REASONS NO . GASTROENTEROLOGY: NEW UNEXPLAINABLE CHANGES IN BOWEL CONTROL NO . CONSTIPATION NO . GENITOURINARY: ANY NEW CHANGE IN BLADDER CONTROL? NO . NEUROLOGY: NEW ONSET DIZZINESS OR NEUROLOGICAL CHANGES NOT MENTIONED NO . NEW NUMBNESS OR PAIN PATTERNS NOT MENTIONED AND PERTINENT TO TODAY'S VISIT NO . CARDIOLOGY: NEW CHEST PRESSURE NO . NEW CHEST PAIN NO . RESPIRATORY: UNEXPLAINABLE COUGH NO . NEW SHORTNESS OF BREATH NO . VITAL SIGNS WT 171.8 LBS, HT 70 IN, BMI 24.65 INDEX, BP 140/64 MM HG, HR 97 /MIN, RR 18 /MIN, TEMP 97.5 F, OXYGEN SAT % 98, SAFE IN ENV? (Y/N) YES, NA INITIALS TTT.SHRUTI BUSTOS. EXAMINATION GENERAL EXAMINATION: GENERALNO ACUTE DISTRESS, WELL NOURISHED AND HYDRATED. PSYCHAPPROPRIATE MOOD AND AFFECT . FACE:UNREMARKABLE. NECK:NO LYMPHADENOPATHY, SUPPLE, NO THYROMEGALLY. LUNGS:CLEAR TO AUSCULTATION BILATERALLY, NO WHEEZES, RHONCHI, RALES. HEART:NO MURMURS, REGULAR RATE AND RHYTHM. BACK:MILD TENDERNESS NOTED OVER L/S SPINE AND LUMBAR PARASPINALS.. MUSCULOSKELETAL:SLIGHTLY WEAK OVER HER LEFT LEG . ATROPHY OF LEFT LEG/MUSCLES NOTED . NEUROLOGIC EXAM:NORMAL SENSATION TO LIGHT TOUCH LOWER EXTREMITIES . ASSESSMENTS LOW BACK PAIN - M54.5 (PRIMARY) OTHER CHRONIC PAIN - G89.29 TREATMENT LOW BACK PAIN NOTES: PATIENT IS ADVISED TO CONTINUE HOME EXERCISE AND STRETCHING. MRI OF LUMBOSACRAL SPINE IS ORDERED TODAY DUE TO INCREASE IN LOW BACK PAIN THAT HAS FAILED CONSERVATIVE CARE. HE WOULD LIKE TO CONSIDER INJECTION THERAPY IF NECESSARY. FOLLOW-UP IS SCHEDULED IN 4-6 WEEKS TO REVIEW MRI AND PLAN TREATMENT. PROCEDURE CODES FA211 ESTABILISHED PATIENT [facility] CHARGE DISPOSITION & COMMUNICATION FOLLOW UP 6 WEEKS (REASON: REVIEW MRI L/S SPINE/DISCUSSED TREATMENT PLAN/LOW BACK PAIN) ELECTRONICALLY SIGNED BY ORLY SEALS ON 03/30/2020 AT 02:28 PM EST DISCLAIMER : THIS IS A VISIT SUMMARY EXTRACTED FROM THE [email or web address] CHART. IT IS NOT A COPY OF THE [email or web address] PROGRESS NOTE. BETTINA
== END ==
LOC: M PAIN 11:00
PROVIDERS: ATTEND Nurse Practitioner Family
DX: M54.5 Low back pain (principal); G89.29 Other chronic pain; E11.9 Type 2 diabetes mellitus without complications; Z87.891 Personal history of nicotine dependence; Z91.013 Allergy to seafood; Z79.899 Other long term (current) drug therapy

== ENCOUNTER → 2020-06-01 | Outpatient (CLI) | payer MEDICARE ==
[~2020-06-01] MED LIST changes: -LISI-542 PO; +LISI-898 PO
--- NOTE | 2020-06-01 15:03 | REPVR ---
PROCEDURE INFORMATION: Exam: MR Lumbar Spine Without Contrast Exam date and time: 06/01/2020 12:24 PM Age: 74 years old Clinical indication: Low back pain; Additional info: Lbp TECHNIQUE: Imaging protocol: Multiplanar magnetic resonance images of the lumbar spine without intravenous contrast. COMPARISON: PT PET/CT Skull/mid thigh 11/21/2016 12:24 PM FINDINGS: Vertebrae: There is straightening of the lumbar spine which could be secondary to positioning or muscle spasm. Mild levoscoliosis. There is mild degenerative retrolisthesis of L2 over L3, L3 over L4 and L4 over L5. Otherwise,The lumbar vertebral bodies are normal in height,signal intensity and alignment.No acute fracture or dislocation is seen. Spinal epidural space: There is no evidence of epidural masses or hemorrhage. Spinal cord: The conus medullaris is normal. Advanced degenerative spondylotic changes are seen in the form of marked disc space narrowing, marginal anterior osteophytes, moderate degenerative endplate changes and moderate facet arthropathy at L2-L3 through L5-S1 levels. L1-L2: Small diffuse posterior herniation. Moderate facet arthropathy.There is thickening of the ligamentum flavum.There is no evidence of spinal canal narrowing. There is mild bilateral foraminal stenosis. L2-L3: Small diffuse posterior herniation. Moderate facet arthropathy.There is thickening of the ligamentum flavum.There is moderate spinal canal stenosis, with an AP canal dimension of 8 mm. There is moderate left foraminal stenosis. There is severe right foraminal stenosis. L3-L4: Small diffuse posterior herniation. Moderate facet arthropathy.There is thickening of the ligamentum flavum.There is severe spinal canal stenosis, with an AP canal dimension of 6 mm. There is compression on the thecal sac and crowding of the cauda equina nerve roots at this level.There is moderate left foraminal stenosis. There is severe right foraminal stenosis. L4-L5: Small diffuse posterior herniation. Moderate facet arthropathy.There is thickening of the ligamentum flavum.There is severe spinal canal stenosis, with an AP canal dimension of 6 mm. There is severe bilateral foraminal stenosis. L5-S1: Small diffuse posterior herniation. Moderate facet arthropathy.There is mild spinal canal narrowing, with an AP canal dimension of 10 mm. There is moderate bilateral foraminal stenosis. Soft tissues: The prevertebral soft tissues appear normal. Kidneys and ureters: Large cystic mass posterior to the left kidney is again noted. IMPRESSION: MRI of the lumbar spine reveals multilevel degenerative spondylitic changes and degenerative disc disease as described above. Electronically signed by: Steve Simon On 06/01/2020 15:03:39 PM
== END ==
LOC: M RAD 10:48
PROVIDERS: ATTEND Nurse Practitioner Family
DX: M47.816 Spondylosis without myelopathy or radiculopathy, lumbar region (principal)

== ENCOUNTER → 2020-06-15 | Outpatient (CLI) | payer MEDICARE ==
--- NOTE | 2020-06-18 12:17 | ECWPNPC ---
PATIENT NAME: NIVIA CASTANEDA : 1945 GENDER: MALE VISIT DATE: 06/15/2020 DISCHARGE DATE: 06/15/20 1233 VISIT LOCKED DATE TIME: PHYSICIAN: JACKELYN FITCH PHYSICIAN PAGER NO: ACTIVE RESOURCE: JACKELYN FITCH REASON FOR APPOINTMENT 1. MRI REVIEW HISTORY OF PRESENT ILLNESS GENERAL: HERE FOR FOLLOW-UP OF CHRONIC LOW BACK PAIN AND LEFT HIP PAIN. MRI OF THE LUMBAR SPINE THAT I ORDERED AT INITIAL EVALUATION IS REVIEWED WITH PATIENT TODAY. I ALSO REVIEWED MRI WITH DR. BAIG. HE SPOKE TO RADIOLOGY. PATIENT HAS SEVERE STENOSIS IN THE LUMBAR REGION. MRI IS SHOWING A-LARGE CYSTIC MASS BEHIND LEFT KIDNEY UNCHANGED FROM PREVIUOS IMAGING.PATIENT STATES HE WILL CALL PRIMARY CARE AND HAVE THEM EVALUATE THIS.PATIENT HAS A HISTORY OF KIDNEY STONE WITH RECENT EPISODE.DISCUSSED TREATMENT OPTIONS FOR LOW BACK PAIN. FALL RISK SCREENING: SCREENING : ONE FALL REPORTED IN THE LAST YEAR WITHOUT INJURY. PAIN SCREENING: PATIENT HAS A COMPLAINT OF ACUTE OR CHRONIC PAIN :YES LOCATION OF PAIN:LOW BACK, LEFT HIP, RIGHT HIP INTENSITY OF PAIN (SCALE OF 1 TO 10):5 WHAT DOES YOUR PAIN FEEL LIKE: HURTS ALL THE TIME, WORSENING THROUGH THE DAY, LEFT HIP HURTS MORE THAN THE RIGHT HIP, LIMITS ACTIVITY, CAN'T WALK DOG MORE THAN 100 PACES DURATION:CONTINOUS, CONSTANT PAIN IS INCREASED BY:ACTIVITIES PAIN IS DECREASED BY:USE OF PAIN MEDICATIONS TYLENOL TID NURSING NOTE: -. PAIN CENTER INTAKE QUESTIONS: DO YOU HAVE A HISTORY OF MRSA? :NO DO YOU TAKE A BLOOD THINNERS? :NO DO YOU HAVE ANY BLEEDING DISORDERS? :NO ANY NEW NUMBNESS OR WEAKNESS IN YOUR LEGS OR ARMS? :YES RIGHT HAND PINKY FINGER ANY PACEMAKER,DEFIBRILLATOR, OR DORSAL COLUMN STIMULATOR? :NO DO YOU HAVE ANY RASHES OR OPEN SORES? :YES LEFT FOOT ITCHES REDDENED ARE YOU ALLERGIC TO IV DYE? :NO ARE YOU DIABETIC? :NO ANY NEW PROBLEMS WITH YOUR MEDICATIONS? :NO HAVE YOU RECEIVED A VACCINE IN THE PAST 30 DAYS? :NO DO YOU PLAN TO RECEIVE A VACCINE IN THE NEXT 21 DAYS? :NO DO YOU NEED ANY PRESCRIPTION? :NO DO YOU TAKE ANY IMMUNOSUPPRESSIVE MEDICATIONS? :NO IS THERE A CHANCE YOU COULD BE ? :NO ARE YOU BREAST FEEDING? :NO CURRENT MEDICATIONS TAKING LORATADINE 10 MG TABLET 1 TABLET ORALLY ONCE A DAY NEEDED TAKING FINASTERIDE 5 MG TABLET 1 TABLET ORALLY ONCE A DAY AT BEDTIME TAKING DOXAZOSIN MESYLATE 1 MG TABLET 1 TABLET ORALLY BEFORE BEDTIME TAKING HYDROXYZINE HCL 25 MG TABLET 1-2 TABLET NEEDED ORALLY BEFORE BED TIME TAKING BENZOCAINE 20 % AEROSOL 1 APPLICATION NEEDED EXTERNALLY TWICE A DAY TAKING CHANTIX STARTING MONTH KENDALL 0.5 MG X 11 & 1 MG X 42 TABLET DIRECTED ORALLY DAILY TAKING CHANTIX CONTINUING MONTH KENDALL 1 MG TABLET DIRECTED ORALLY DAILY TAKING SILDENAFIL CITRATE 50 MG TABLET 1 TABLET ORALLY ONCE A DAY NOT-TAKING MULTIVITAMINS - TABLET 1 TABLET ORALLY ONCE A DAY NOT-TAKING TYLENOL 8 HOUR 650 MG TABLET EXTENDED RELEASE 2 TABLETS NEEDED ORALLY EVERY 8 HRS NOT-TAKING ASPIRIN ADULT LOW STRENGTH 81 MG TABLET DELAYED RELEASE 1 TABLET ORALLY ONCE A DAY NOT-TAKING COLCHICINE 0.6 MG TABLET 1 TABLET ORALLY BID, NOTES: FOR HAND SWELLING NOT-TAKING PILOCARPINE HCL 5 MG TABLET 1 TABLET ORALLY THREE TIMES A DAY NOT-TAKING METFORMIN HCL 500 MG TABLET 1 TABLET WITH MEALS ORALLY TWICE A DAY NOT-TAKING KETOCONAZOLE 2 % CREAM 1 APPLICATION TO AFFECTED AREA EXTERNALLY ONCE A DAY, NOTES: PHARMACY. PLEASE HAVE PT GET OTC CLOTRIMAZOLE IF CHEAPER NOT-TAKING GABAPENTIN 100 MG CAPSULE 2 CAPSULE ORALLY FOUR TIMES DAILY NOT-TAKING DOXYCYCLINE HYCLATE 100 MG CAPSULE 1 CAPSULE ORALLY BID NOT-TAKING LEVOFLOXACIN 500 MG TABLET 1 TABLET ORALLY ONCE A DAY NOT-TAKING LEVOFLOXACIN 500 MG TABLET 1 TABLET ORALLY ONCE A DAY NOT-TAKING PREDNISONE 20 MG TABLET 2 TABLET ORALLY ONCE A DAY MEDICATION LIST REVIEWED AND RECONCILED WITH THE PATIENT PAST MEDICAL HISTORY KIDNEY STONE HEMATURIA, GROSS DYSURIA ELEVATED PSA SEASONAL ALERGIES DIABETES HYPERLIPIDEMIA SQUAMOUS CELL CARCINOMA OF TONGUE ALLERGIES SHELLFISH: ANAPHYLAXIS - ALLERGY SOCIAL HISTORY GENERAL: TOBACCO USE ARE YOU A:CURRENT SMOKER ARE YOU INTERESTED IN QUITTING?THINKING ABOUT QUITTING COUNSELED THE PATIENT ON SMOKING CESSATION, EDUCATION [id number]/31/2021 LATEX QUESTIONNAIRE LATEX ALLERGY : HAVE YOU EVER DEVELOPED ANY TYPE OF REACTION AFTER HANDLING LATEX PRODUCTS SUCH RUBBER GLOVES, CONDOMS, DIAPHRAGMS, BALLOONS, SOCKS, OR UNDERWEAR?NO LATEX ALLERGY : HAVE YOU EVER DEVELOPED ANY TYPE OF REACTION DURING OR AFTER DENTAL APPOINTMENT, VAGINAL/RECTAL EXAMINATION, SURGICAL PROCEDURE, OR ANY OTHER EXPOSURE?NO DATE ASKED : 03/29/2020 LATEX RISK : HAVE YOU EVER HAD ANY DIFFICULTY BREATHING OR HIVES AFTER EATING OR HANDLING ANY FRUITS, OR VEGETABLES; SUCH KIWI, BANANAS, STONE FRUITS, OR CHESTNUTSNO LATEX RISK : DO YOU HAVE A PREVIOUS PERSONAL HISTORY OF MORE THAN NINE SURGERIES, SPINA BIFIDA, OR REPEATED CATHERIZATIONS? NO LATEX RISK : ARE YOU FREQUENTLY EXPOSED TO LATEX PRODUCTS IN YOUR OCCUPATION?NO LUNG CANCER SCREENING SMOKING STATUS:CURRENT SMOKER BMI CARE GOAL FOLLOW-UP ABOVE NORMAL BMI FOLLOW-UPLIFESTYLE EDUCATION REGARDING DIET ALCOHOL SCREENING DID YOU HAVE A DRINK CONTAINING ALCOHOL IN THE PAST YEAR?NO POINTS0 INTERPRETATIONNEGATIVE RECREATIONAL DRUG USE DRUG USE?NO CAFFEINE CAFFEINE USE?YES HOW OFTEN AND HOW MUCH? 2 LITERS DAILY SEXUAL HX HAD SEX IN THE LAST 12 MONTHS (VAGINAL, ORAL, OR ANAL)?NO HAVE YOU EVER HAD AN STD?NO HIV / HEP-C SCREENING HIV TEST OFFERED TO PATIENT:NO HEP-C TEST OFFERED TO PATIENT:NO RELIGIOUS NO MUSLIM BELIEFS THAT WOULD IMPACT HEALTH CARE. LANGUAGE CZECH. LEARNING BARRIERS / SPECIAL NEEDS CHANGE FROM LAST VISIT?NO BARRIERS TO LEARNING?NO HEARING IMPAIRED?NO VISION IMPAIRED?YES COGNITIVELY IMPAIRED?NO :CORRECTIVE LENSES READINESS TO LEARN?YES LEARNING PREFERENCES?NO LEARNING CAPABILITIES PRESENT?YES EMOTIONAL BARRIERS?NO SPECIAL DEVICES?NO CERAMIC DESIGNER NEEDED?NO DOMESTIC VIOLENCE NONE. 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 DIET: REGULAR. EXERCISE: NO REGULAR EXERCISE. MARITAL STATUS: .. OTHERS AT HOME: NONE. - HAS THE PATIENT BEEN EDUCATED REGARDING HIS/HER PLAN OF CARE?YES HAS THE PATIENT BEEN EDUCATED REGARDING PAIN, THE RISK FOR PAIN, THE IMPORTANCE OF EFFECTIVE PAIN MANAGEMENT, AND THE PAIN ASSESSMENT PROCESS?YES ADVANCE DIRECTIVE ADVANCE DIRECTIVE DISCUSSED WITH PATIENT:YES PT DOES NOT WANT ANY INFORMATION REVIEW OF SYSTEMS CONSTITUTIONAL: ANY RECENT FEVER NO . CHILLS NO . WEIGHT CHANGE OF UNKNOWN REASONS NO . GASTROENTEROLOGY: NEW UNEXPLAINABLE CHANGES IN BOWEL CONTROL NO . CONSTIPATION NO . GENITOURINARY: ANY NEW CHANGE IN BLADDER CONTROL? NO . NEUROLOGY: NEW ONSET DIZZINESS OR NEUROLOGICAL CHANGES NOT MENTIONED NO . NEW NUMBNESS OR PAIN PATTERNS NOT MENTIONED AND PERTINENT TO TODAY'S VISIT NO . CARDIOLOGY: NEW CHEST PRESSURE NO . PATIENT DENIES NO . RESPIRATORY: UNEXPLAINABLE COUGH NO . NEW SHORTNESS OF BREATH NO . VITAL SIGNS WT 209.8 LBS, HT 70 IN, BMI 30.10 INDEX, BP 138/65 MM HG, HR 83 /MIN, RR 18 /MIN, TEMP 98.0 F, OXYGEN SAT % 98%, SAFE IN ENV? (Y/N) Y, NA INITIALS AW 1138, REVIEWED BY: EM. EXAMINATION GENERAL EXAMINATION: GENERALNO ACUTE DISTRESS, WELL NOURISHED AND HYDRATED. PSYCHAPPROPRIATE MOOD AND AFFECT . FACE:UNREMARKABLE. NECK:NO LYMPHADENOPATHY, SUPPLE, NO THYROMEGALLY. LUNGS:CLEAR TO AUSCULTATION BILATERALLY, NO WHEEZES, RHONCHI, RALES. HEART:NO MURMURS, REGULAR RATE AND RHYTHM. BACK:MILD TENDERNESS NOTED OVER L/S SPINE AND LUMBAR PARASPINALS.. MUSCULOSKELETAL:SLIGHTLY WEAK OVER HER LEFT LEG . ATROPHY OF LEFT LEG/MUSCLES NOTED . LUMBAR: MRI L/S SPINE-2020. NEUROLOGIC EXAM:NORMAL SENSATION TO LIGHT TOUCH LOWER EXTREMITIES . ASSESSMENTS DEGENERATIVE LUMBAR SPINAL STENOSIS - M48.061 (PRIMARY) TREATMENT DEGENERATIVE LUMBAR SPINAL STENOSIS SALINE LOCK (ORDERED FOR 06/22/2020) NOTES: LUMBAR EPIDURAL STEROID INJECTION PRINTED AND REVIEWED PRE PROCEDURE WITH PATIENT ANAI BUSTOS. PROCEDURE CODES FA211 ESTABILISHED PATIENT [facility] CHARGE DISPOSITION & COMMUNICATION FOLLOW UP POSTPROCEDURE (REASON: LUMBAR EPIDURAL STEROID INJECTION) ELECTRONICALLY SIGNED BY ORLY SEALS ON 06/17/2020 AT 03:54 PM EDT DISCLAIMER : THIS IS A VISIT SUMMARY EXTRACTED FROM THE [facility] CHART. IT IS NOT A COPY OF THE [facility] PROGRESS NOTE. BETTINA
== END ==
LOC: M PAIN 11:30
PROVIDERS: ATTEND Nurse Practitioner Family
DX: M48.061 Spinal stenosis, lumbar region without neurogenic claudication (principal); G89.29 Other chronic pain; F17.200 Nicotine dependence, unspecified, uncomplicated; Z91.013 Allergy to seafood; Z79.899 Other long term (current) drug therapy

== ENCOUNTER → 2020-06-22 | Outpatient (CLI) | payer MEDICARE | LOC: M LABSMTC 12:29 | PROVIDERS: ATTEND Anesthesiology | DX: Z20.822 Contact with and (suspected) exposure to COVID-19 (principal) ==

== ENCOUNTER → 2020-07-06 | Outpatient (REF) | payer MEDICARE ==
[2020-07-06 15:23] LABS: BLOOD UREA NITROGEN 17 MG/DL (7-18); CARBON DIOXIDE LEVEL 31 MEQ/L (21-32); CHLORIDE LEVEL 104 MEQ/L (98-107); CREATININE FOR GFR 0.73 MG/DL (0.70-1.30); GLOMERULAR FILTRATION RATE > 60.0 (>42); GLUCOSE, FASTING 80 MG/DL (70-100); POTASSIUM SERUM 4.2 MEQ/L (3.5-5.1); SODIUM LEVEL 138 MEQ/L (136-145)
== END ==
LOC: M SFHCPLAZ 13:18
PROVIDERS: ATTEND Physician Assistant
DX: R93.89 Abnormal findings on diagnostic imaging of other specified body structures (principal)

== ENCOUNTER → 2020-07-12 | Outpatient (CLI) | payer MEDICARE ==
[~2020-07-12] MED LIST changes: +GASTROGRAFIN SOLUTION 30ML (Q9963) As Ordered ONE; +ISOVUE-370 76% 100ML VIAL As Ordered ONE
--- NOTE | 2020-07-12 13:32 | REP ---
INDICATION: ABN NORMAL FINDINGS IMAG (MRI). COMPARISON: There are no prior a CT examinations of the abdomen and pelvis for comparison. Prior lumbar spine MRI of 06/01/2020 showed a large cystic mass posterior to the left kidney. The CT portion of a PET-CT obtained 11/21/2016 was reviewed TECHNIQUE: Pre and post contrast enhanced standard helical technique before and after the intravenous administration of 100 cc Isovue 370 FINDINGS: The lung bases are clear. The pre contrast enhanced portion of the examination shows a 12 by 12 x 6.7 cm sized low-density structure in the left posterior Shalini renal space. This has water density Hounsfield unit readings. This is displacing the left kidney anteriorly. In the interpolar region of the right kidney anteriorly there is a round 3.3 cm sized low-density structure which has near water density Hounsfield unit readings. There are bilateral renovascular calcifications. There are no cholelithiasis. The contrast-enhanced portion examination shows no evidence of enhancement of the large left-sided posterior cyst. There is no enhancement of the right intra renal cyst. The liver, gallbladder, spleen, pancreas, and kidneys are otherwise unremarkable. There is bilateral low-density adrenal gland thickening similar to that seen on the prior CT. The abdominal aorta and para-aortic regions are within normal limits. The bowel loops and the mesenteries are within normal limits. There is no free fluid or free air. There is no adenopathy. 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 Bone window technique throughout the examination shows the osseous structures to be within normal limits for the patient's age. IMPRESSION: 1. Stable appearing cyst in the left posterior perirenal space as described above. 2. Simple Bosniak class 1 right renal cyst as described above with other much smaller in fact tiny renal cortical cysts also suspected seen only on delayed imaging. 3. Stable bilateral adrenal gland thickening. 4. Other findings as described above. <Electronically signed by Wilfredo Alvares > 07/12/20 1945
== END ==
LOC: M RAD 11:00
PROVIDERS: ATTEND Physician Assistant
DX: R93.89 Abnormal findings on diagnostic imaging of other specified body structures (principal); N28.1 Cyst of kidney, acquired
CPT/HCPCS: 74178; Q9963; Q9967

== ENCOUNTER → 2020-07-19 | Outpatient (REF) | payer MEDICARE ==
[~2020-07-19] MED LIST changes: -GASTROGRAFIN SOLUTION 30ML (Q9963) As Ordered ONE; -ISOVUE-370 76% 100ML VIAL As Ordered ONE
== END ==
LOC: M LAB REF 13:44 → EEVIPCON 13:44
PROVIDERS: ATTEND Physician Assistant
DX: C44.329 Squamous cell carcinoma of skin of other parts of face (principal)
CPT/HCPCS: 11102; 17000; 87070; 87077; 87186; 88305; G0463

== ENCOUNTER → 2020-08-04 | Outpatient (CLI) | payer MEDICARE ==
--- NOTE | 2020-08-09 04:22 | ECWPNPC ---
PATIENT NAME: NIVIA CASTANEDA : 1945 GENDER: MALE VISIT DATE: 08/04/2020 DISCHARGE DATE: 08/04/20 1401 VISIT LOCKED DATE TIME: PHYSICIAN: JACKELYN FITCH PHYSICIAN PAGER NO: ACTIVE RESOURCE: JACKELYN FITCH REASON FOR APPOINTMENT 1. BIOPSY RESULTS HISTORY OF PRESENT ILLNESS DEPRESSION SCREENING: PHQ-2 (2015 EDITION) LITTLE INTEREST OR PLEASURE IN DOING THINGS?NOT AT ALL FEELING DOWN, DEPRESSED, OR HOPELESS?NOT AT ALL TOTAL SCORE0 GENERAL: HERE FOR FOLLOW-UP OF CHRONIC LOW BACK PAIN. 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 HE HAD RADIATION AND CHEMOTHERAPY THAT WAS DONE IN 2019. CONTINUES TO COMPLAIN OF SIGNIFICANT LOW BACK PAIN. DISCUSSED MEDICATION OPTIONS. -. FALL RISK SCREENING: SCREENING : NO FALLS REPORTED IN THE LAST YEAR. PAIN SCREENING: PATIENT HAS A COMPLAINT OF ACUTE OR CHRONIC PAIN :YES LOCATION OF PAIN:LOW BACK, RIGHT HIP INTENSITY OF PAIN (SCALE OF 1 TO 10):3 WHAT DOES YOUR PAIN FEEL LIKE:ACHING, THROBBING, SHOOTING DURATION:CONTINOUS, CONSTANT, ALL DAY PAIN IS INCREASED BY:ACTIVITIES, PROLONGED STANDING PAIN IS DECREASED BY:SITTING NURSING NOTE: -. PAIN CENTER INTAKE QUESTIONS: DO YOU HAVE A HISTORY OF MRSA? :YES 07/2020 DO YOU TAKE A BLOOD THINNERS? :NO DO YOU HAVE ANY BLEEDING DISORDERS? :NO ANY NEW NUMBNESS OR WEAKNESS IN YOUR LEGS OR ARMS? :NO ANY PACEMAKER,DEFIBRILLATOR, OR DORSAL COLUMN STIMULATOR? :NO DO YOU HAVE ANY RASHES OR OPEN SORES? :NO ARE YOU ALLERGIC TO IV DYE? :NO ARE YOU DIABETIC? :NO ANY NEW PROBLEMS WITH YOUR MEDICATIONS? :NO HAVE YOU RECEIVED A VACCINE IN THE PAST 30 DAYS? :NO DO YOU PLAN TO RECEIVE A VACCINE IN THE NEXT 21 DAYS? :NO DO YOU NEED ANY PRESCRIPTION? :NO DO YOU TAKE ANY IMMUNOSUPPRESSIVE MEDICATIONS? :NO DO YOU HAVE ANY KIDNEY OR LIVER DISEASE? :NO IS THERE A CHANCE YOU COULD BE ? :NO ARE YOU BREAST FEEDING? :NO CURRENT MEDICATIONS TAKING LORATADINE 10 MG TABLET 1 TABLET ORALLY ONCE A DAY NEEDED TAKING FINASTERIDE 5 MG TABLET 1 TABLET ORALLY ONCE A DAY AT BEDTIME TAKING DOXAZOSIN MESYLATE 1 MG TABLET 1 TABLET ORALLY BEFORE BEDTIME TAKING CHANTIX CONTINUING MONTH KENDALL 1 MG TABLET DIRECTED ORALLY DAILY TAKING SILDENAFIL CITRATE 50 MG TABLET 1 TABLET ORALLY ONCE A DAY TAKING TYLENOL ARTHRITIS PAIN 650 MG TABLET EXTENDED RELEASE 2 TABLETS NEEDED ORALLY EVERY 8 HRS TAKING DOXYCYCLINE HYCLATE 100 MG TABLET 1 TABLET ORALLY TWICE A DAY NOT-TAKING DOXYCYCLINE HYCLATE 100 MG CAPSULE 1 CAPSULE ORALLY TWICE A DAY NOT-TAKING HYDROXYZINE HCL 25 MG TABLET 1-2 TABLET NEEDED ORALLY BEFORE BED TIME NOT-TAKING BENZOCAINE 20 % AEROSOL 1 APPLICATION NEEDED EXTERNALLY TWICE A DAY NOT-TAKING CHANTIX STARTING MONTH KENDALL 0.5 MG X 11 & 1 MG X 42 TABLET DIRECTED ORALLY DAILY NOT-TAKING MULTIVITAMINS - TABLET 1 TABLET ORALLY ONCE A DAY NOT-TAKING TYLENOL 8 HOUR 650 MG TABLET EXTENDED RELEASE 2 TABLETS NEEDED ORALLY EVERY 8 HRS NOT-TAKING ASPIRIN ADULT LOW STRENGTH 81 MG TABLET DELAYED RELEASE 1 TABLET ORALLY ONCE A DAY NOT-TAKING COLCHICINE 0.6 MG TABLET 1 TABLET ORALLY BID, NOTES: FOR HAND SWELLING NOT-TAKING PILOCARPINE HCL 5 MG TABLET 1 TABLET ORALLY THREE TIMES A DAY NOT-TAKING METFORMIN HCL 500 MG TABLET 1 TABLET WITH MEALS ORALLY TWICE A DAY NOT-TAKING KETOCONAZOLE 2 % CREAM 1 APPLICATION TO AFFECTED AREA EXTERNALLY ONCE A DAY, NOTES: PHARMACY. 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 ALLERGIES SHELLFISH: ANAPHYLAXIS - ALLERGY SURGICAL HISTORY CATARACTS, BILATERAL AT [facility] STEEL REMOVAL FROM BOTH EYES STEEL REMOVAL FROM RIGHT HAND MIDDLE FINGER JOINT THROAT SURGERY AND RADIATION SOCIAL HISTORY GENERAL: TOBACCO USE ARE YOU A:CURRENT SMOKER ARE YOU INTERESTED IN QUITTING?THINKING ABOUT QUITTING COUNSELED THE PATIENT ON SMOKING CESSATION, EDUCATION [id number]/20/2021 HOW MANY CIGARETTES A DAY DO YOU SMOKE?21-30 HOW SOON AFTER YOU WAKE UP DO YOU SMOKE YOUR FIRST CIGARETTE?WITHIN 5 MIN HOW OFTEN DO YOU SMOKE CIGARETTES?EVERY DAY PATIENT COUNSELED ON THE DANGERS OF TOBACCO USE AND URGED TO QUIT:07/25/2020 SMOKING CESSATION INFORMATION GIVEN07/25/2020 LATEX QUESTIONNAIRE LATEX ALLERGY : HAVE YOU EVER DEVELOPED ANY TYPE OF REACTION AFTER HANDLING LATEX PRODUCTS SUCH RUBBER GLOVES, CONDOMS, DIAPHRAGMS, BALLOONS, SOCKS, OR UNDERWEAR?NO LATEX ALLERGY : HAVE YOU EVER DEVELOPED ANY TYPE OF REACTION DURING OR AFTER DENTAL APPOINTMENT, VAGINAL/RECTAL EXAMINATION, SURGICAL PROCEDURE, OR ANY OTHER EXPOSURE?NO LATEX RISK : HAVE YOU EVER HAD ANY DIFFICULTY BREATHING OR HIVES AFTER EATING OR HANDLING ANY FRUITS, OR VEGETABLES; SUCH KIWI, BANANAS, STONE FRUITS, OR CHESTNUTSNO LATEX RISK : DO YOU HAVE A PREVIOUS PERSONAL HISTORY OF MORE THAN NINE SURGERIES, SPINA BIFIDA, OR REPEATED CATHERIZATIONS? NO LATEX RISK : ARE YOU FREQUENTLY EXPOSED TO LATEX PRODUCTS IN YOUR OCCUPATION?NO DATE ASKED : 08/04/2020 ALCOHOL USE: NO. LUNG CANCER SCREENING SMOKING STATUS:CURRENT SMOKER BMI CARE GOAL FOLLOW-UP ABOVE NORMAL BMI FOLLOW-UPLIFESTYLE EDUCATION REGARDING DIET ALCOHOL SCREENING DID YOU HAVE A DRINK CONTAINING ALCOHOL IN THE PAST YEAR?NO POINTS0 INTERPRETATIONNEGATIVE RECREATIONAL DRUG USE DRUG USE?NO CAFFEINE CAFFEINE USE?YES HOW OFTEN AND HOW MUCH? 2 LITERS DAILY SEXUAL HX HAD SEX IN THE LAST 12 MONTHS (VAGINAL, ORAL, OR ANAL)?NO HAVE YOU EVER HAD AN STD?NO HIV / HEP-C SCREENING HIV TEST OFFERED TO PATIENT:NO HEP-C TEST OFFERED TO PATIENT:NO BAHAI NO ZOROASTRIANISM BELIEFS THAT WOULD IMPACT HEALTH CARE. LANGUAGE BURUNDIAN. LEARNING BARRIERS / SPECIAL NEEDS CHANGE FROM LAST VISIT?NO BARRIERS TO LEARNING?NO HEARING IMPAIRED?NO VISION IMPAIRED?YES :CORRECTIVE LENSES COGNITIVELY IMPAIRED?NO READINESS TO LEARN?YES LEARNING PREFERENCES?NO LEARNING CAPABILITIES PRESENT?YES EMOTIONAL BARRIERS?NO SPECIAL DEVICES?YES :WALKER NEEDED JUNIOR AUTOMATION ENGINEER NEEDED?NO DOMESTIC VIOLENCE NONE. 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 DIET: REGULAR. EXERCISE: NO REGULAR EXERCISE. MARITAL STATUS: .. OTHERS AT HOME: NONE. - HAS THE PATIENT BEEN EDUCATED REGARDING HIS/HER PLAN OF CARE?YES HAS THE PATIENT BEEN EDUCATED REGARDING PAIN, THE RISK FOR PAIN, THE IMPORTANCE OF EFFECTIVE PAIN MANAGEMENT, AND THE PAIN ASSESSMENT PROCESS?YES ADVANCE DIRECTIVE ADVANCE DIRECTIVE DISCUSSED WITH PATIENT:YES PT DOES NOT WANT ANY INFORMATION REVIEW OF SYSTEMS CONSTITUTIONAL: ANY RECENT FEVER NO . CHILLS NO . WEIGHT CHANGE OF UNKNOWN REASONS NO . GASTROENTEROLOGY: NEW UNEXPLAINABLE CHANGES IN BOWEL CONTROL NO . CONSTIPATION NO . GENITOURINARY: ANY NEW CHANGE IN BLADDER CONTROL? NO . NEUROLOGY: NEW ONSET DIZZINESS OR NEUROLOGICAL CHANGES NOT MENTIONED NO . NEW NUMBNESS OR PAIN PATTERNS NOT MENTIONED AND PERTINENT TO TODAY'S VISIT NO . CARDIOLOGY: NEW CHEST PRESSURE NO . PATIENT DENIES NO . RESPIRATORY: UNEXPLAINABLE COUGH NO . NEW SHORTNESS OF BREATH NO . VITAL SIGNS WT 215.6 LBS, HT 70 IN, BMI 30.93 INDEX, BP 142/81 MM HG, HR 75 /MIN, RR 20 /MIN, TEMP 97.0 F, OXYGEN SAT % 95%, SAFE IN ENV? (Y/N) YES, NA INITIALS RI 13:27T.SHRUTI BUSTOS. EXAMINATION GENERAL EXAMINATION: GENERALAWAKE,ALERT ,PLEASANT . PSYCHAFFECT NORMAL . LUNGS:LUNG GARCIA ARE CLEAR TO AUSCULTATION BILATERALLY. GOOD MOVEMENT OF AIR . HEART:S1, S2 IN A REGULAR RATE AND RHYTHM. NO SIGNIFICANT MURMURS, RUBS OR GALLOPS NOTED . ASSESSMENTS DEGENERATIVE LUMBAR SPINAL STENOSIS - M48.061 (PRIMARY) TREATMENT DEGENERATIVE LUMBAR SPINAL STENOSIS START HYDROCODONE-ACETAMINOPHEN TABLET, 5-325 MG, 1 TABLET NEEDED, ORALLY, TWICE A DAY IF NEEDED FOR SEVERE PAIN EPISODES MDD2 330 TABS SHOULD LAST 30 DAYS, 30 DAYS, 30 NOTES: ISTOP REGISTRY REVIEWED AND DEMONSTRATES COMPLLIANCE. , [facility] NARCOTIC AGREEMENT WAS REVIEWED AND SIGNED TODAY BY THE PATIENT. SEE ATTACHED DOCUMENT FOR FULL DETAILS; SPECIFIC ISSUES WERE REVIEWED: 1) KEEP PAIN MEDS IN THEIR ORIGINAL BOTTLES AND ANY WEEKLY PLANNERS ARE TO BE BROUGHT TO THE PAIN CENTER AT EVERY VISIT. 2) THE PATIENT IS NOT TO INCREASE DOSING OR TIMING OF THEIR PAIN MEDICATION WITHOUT SPECIFIC DIRECTION OF THEIR PAIN CENTERPROVIDER (NOT ER OR OTHER PROVIDERS). 3) ALL PAIN MEDS ARE TO BE KEPT SECURED, IN A LOCKED BOX. 4) NO PAIN MEDS ARE TO BE SHARED WITH ANY OTHER PERSON FOR ANY REASON. 5) NO PAIN MEDS MAY BE TAKEN FROM ANY FRIENDS OR RELATIVES FOR ANY REASON 6) NO MEDS OR SUBSTANCES WHICH ARE NOT LEGAL ARE TO BE USED- NO MARIJUANA, NO COCAINE, AMPHETAMINES, HEROIN, OR OTHERS ARE EVER TO BE USED. 7)URINE TESTING IS DONE TO ACCOUNT FOR MEDS AND SUBSTANCES BEING TAKEN AND WILL BE DONE RANDOMLY. , RISKS OF NARCOTIC/OPIOD MEDICATIONS INCLUDES BUT IS NOT LIMITED TO RISK OF DEPENDANCE/DEVELOPMENT OF ADDICTION, MOOD DISTURBANCE AND DEPRESSION, OSTEOPOROSIS, HORMONAL AND LABIDAL CHANGES, RESPIRATORY DEPRESSION AND . PATIENT IS ADVISED NOT TO DRIVE OR DRINK ALCOHOL WHILE ON THESE MEDICATIONS. PROCEDURE CODES FA211 ESTABILISHED PATIENT [facility] FACILITY CHARGE DISPOSITION & COMMUNICATION FOLLOW UP 2 MONTHS (REASON: MED MGMNT/UTOX) ELECTRONICALLY SIGNED BY ORLY SEALS ON 08/08/2020 AT 01:11 PM EDT DISCLAIMER : THIS IS A VISIT SUMMARY EXTRACTED FROM THE [email or web address] CHART. IT IS NOT A COPY OF THE [email or web address] PROGRESS NOTE. TAMIKAD
== END ==
LOC: M PAIN 13:30
PROVIDERS: ATTEND Nurse Practitioner Family
DX: M48.061 Spinal stenosis, lumbar region without neurogenic claudication (principal); G89.29 Other chronic pain; F17.210 Nicotine dependence, cigarettes, uncomplicated; Z86.14 Personal history of Methicillin resistant Staphylococcus aureus infection; Z91.013 Allergy to seafood; Z79.899 Other long term (current) drug therapy

== ENCOUNTER → 2020-10-04 | Outpatient (CLI) | payer MEDICARE ==
--- NOTE | 2020-10-07 03:47 | ECWPNPC ---
PATIENT NAME: NIVIA CASTANEDA : 1945 GENDER: MALE VISIT DATE: 10/04/2020 DISCHARGE DATE: 10/04/20 1440 VISIT LOCKED DATE TIME: PHYSICIAN: JACKELYN FITCH PHYSICIAN PAGER NO: ACTIVE RESOURCE: JACKELYN FITCH REASON FOR APPOINTMENT 1. MED MGMNT/UTOX HISTORY OF PRESENT ILLNESS GENERAL: HERE FOR FOLLOW-UP OF CHRONIC LOW BACK PAIN. PATIENT FINDS PERIODIC USE OF HYDROCODONE 5/325 HELPFUL AT REDUCING PAIN AND KEEPING HIM FUNCTIONAL. DENIES ADVERSE SIDE EFFECTS WITH THE MEDICATION. BRINGS IN HIS PRESCRIPTION THAT WAS LAST FILLED IN JULY AND HE STILL HAS A FEW TABLETS LEFT. HE IS USING IT VERY INFREQUENTLY AND JUDICIOUSLY FOR SEVERE PAIN EPISODES. -. FALL RISK SCREENING: SCREENING : NO FALLS REPORTED IN THE LAST YEAR. PAIN SCREENING: PATIENT HAS A COMPLAINT OF ACUTE OR CHRONIC PAIN :YES LOCATION OF PAIN:LOW BACK INTENSITY OF PAIN (SCALE OF 1 TO 10):2 WHAT DOES YOUR PAIN FEEL LIKE:ACHING, CONTINOUS DURATION:CONTINOUS, CONSTANT, ALL DAY PAIN IS INCREASED BY:ACTIVITIES, PROLONGED STANDING PAIN IS DECREASED BY:USE OF PAIN MEDICATIONS, SITTING NURSING NOTE: -. PAIN CENTER INTAKE QUESTIONS: DO YOU HAVE A HISTORY OF MRSA? :YES 07/2020 DO YOU TAKE A BLOOD THINNERS? :NO DO YOU HAVE ANY BLEEDING DISORDERS? :NO ANY NEW NUMBNESS OR WEAKNESS IN YOUR LEGS OR ARMS? :NO ANY PACEMAKER,DEFIBRILLATOR, OR DORSAL COLUMN STIMULATOR? :NO DO YOU HAVE ANY RASHES OR OPEN SORES? :NO ARE YOU ALLERGIC TO IV DYE? :NO ARE YOU DIABETIC? :YES ANY NEW PROBLEMS WITH YOUR MEDICATIONS? :NO HAVE YOU RECEIVED A VACCINE IN THE PAST 30 DAYS? :YES 1ST COVID SHOT NOT SURE DO YOU PLAN TO RECEIVE A VACCINE IN THE NEXT 21 DAYS? :YES IF SO WHAT VACCINE AND WHEN? 2ND COVID SHOT DO YOU NEED ANY PRESCRIPTION? :NO DO YOU TAKE ANY IMMUNOSUPPRESSIVE MEDICATIONS? :NO DO YOU HAVE ANY KIDNEY OR LIVER DISEASE? :NO IS THERE A CHANCE YOU COULD BE ? :NO ARE YOU BREAST FEEDING? :NO CURRENT MEDICATIONS TAKING LORATADINE 10 MG TABLET 1 TABLET ORALLY ONCE A DAY NEEDED TAKING FINASTERIDE 5 MG TABLET 1 TABLET ORALLY ONCE A DAY AT BEDTIME TAKING DOXAZOSIN MESYLATE 1 MG TABLET 1 TABLET ORALLY BEFORE BEDTIME TAKING CHANTIX CONTINUING MONTH KENDALL 1 MG TABLET DIRECTED ORALLY DAILY TAKING SILDENAFIL CITRATE 50 MG TABLET 1 TABLET ORALLY ONCE A DAY TAKING TYLENOL ARTHRITIS PAIN 650 MG TABLET EXTENDED RELEASE 2 TABLETS NEEDED ORALLY EVERY 8 HRS TAKING DOXYCYCLINE HYCLATE 100 MG TABLET 1 TABLET ORALLY TWICE A DAY TAKING HYDROCODONE-ACETAMINOPHEN 5-325 MG TABLET 1 TABLET NEEDED ORALLY TWICE A DAY IF NEEDED FOR SEVERE PAIN EPISODES MDD2 330 TABS SHOULD LAST 30 DAYS MEDICATION LIST REVIEWED AND RECONCILED WITH THE PATIENT PAST MEDICAL HISTORY KIDNEY STONE HEMATURIA, GROSS DYSURIA ELEVATED PSA SEASONAL ALERGIES DIABETES HYPERLIPIDEMIA 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 ALLERGIES SHELLFISH: ANAPHYLAXIS - ALLERGY SOCIAL HISTORY GENERAL: TOBACCO USE ARE YOU A:CURRENT SMOKER ARE YOU INTERESTED IN QUITTING?THINKING ABOUT QUITTING COUNSELED THE PATIENT ON SMOKING CESSATION, EDUCATION [id number]/20/2021 HOW MANY CIGARETTES A DAY DO YOU SMOKE?21-30 HOW SOON AFTER YOU WAKE UP DO YOU SMOKE YOUR FIRST CIGARETTE?WITHIN 5 MIN HOW OFTEN DO YOU SMOKE CIGARETTES?EVERY DAY PATIENT COUNSELED ON THE DANGERS OF TOBACCO USE AND URGED TO QUIT:10/04/2020 SMOKING CESSATION INFORMATION GIVEN07/25/2020 LATEX QUESTIONNAIRE LATEX ALLERGY : HAVE YOU EVER DEVELOPED ANY TYPE OF REACTION AFTER HANDLING LATEX PRODUCTS SUCH RUBBER GLOVES, CONDOMS, DIAPHRAGMS, BALLOONS, SOCKS, OR UNDERWEAR?NO LATEX ALLERGY : HAVE YOU EVER DEVELOPED ANY TYPE OF REACTION DURING OR AFTER DENTAL APPOINTMENT, VAGINAL/RECTAL EXAMINATION, SURGICAL PROCEDURE, OR ANY OTHER EXPOSURE?NO LATEX RISK : HAVE YOU EVER HAD ANY DIFFICULTY BREATHING OR HIVES AFTER EATING OR HANDLING ANY FRUITS, OR VEGETABLES; SUCH KIWI, BANANAS, STONE FRUITS, OR CHESTNUTSNO LATEX RISK : DO YOU HAVE A PREVIOUS PERSONAL HISTORY OF MORE THAN NINE SURGERIES, SPINA BIFIDA, OR REPEATED CATHERIZATIONS? NO LATEX RISK : ARE YOU FREQUENTLY EXPOSED TO LATEX PRODUCTS IN YOUR OCCUPATION?NO DATE ASKED : 10/04/2020 ALCOHOL USE: NO. LUNG CANCER SCREENING SMOKING STATUS:CURRENT SMOKER BMI CARE GOAL FOLLOW-UP ABOVE NORMAL BMI FOLLOW-[facility] EDUCATION REGARDING DIET ALCOHOL SCREENING DID YOU HAVE A DRINK CONTAINING ALCOHOL IN THE PAST YEAR?NO POINTS0 INTERPRETATIONNEGATIVE RECREATIONAL DRUG USE DRUG USE?NO CAFFEINE CAFFEINE USE?YES HOW OFTEN AND HOW MUCH? 2 LITERS DAILY SEXUAL HX HAD SEX IN THE LAST 12 MONTHS (VAGINAL, ORAL, OR ANAL)?NO HAVE YOU EVER HAD AN STD?NO HIV / HEP-C SCREENING HIV TEST OFFERED TO PATIENT:NO HEP-C TEST OFFERED TO PATIENT:NO MANDAEISM NO ADVENTIST BELIEFS THAT WOULD IMPACT HEALTH CARE. LANGUAGE PAKISTANI. LEARNING BARRIERS / SPECIAL NEEDS CHANGE FROM LAST VISIT?NO BARRIERS TO LEARNING?NO HEARING IMPAIRED?YES VISION IMPAIRED?YES :CORRECTIVE LENSES COGNITIVELY IMPAIRED?YES READINESS TO LEARN?YES LEARNING PREFERENCES?NO LEARNING CAPABILITIES PRESENT?YES EMOTIONAL BARRIERS?NO SPECIAL DEVICES?YES :WALKER NEEDED TRESTLE MAINTERNANCE LABORER NEEDED?NO DOMESTIC VIOLENCE NONE. 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 DIET: REGULAR. EXERCISE: NO REGULAR EXERCISE. MARITAL STATUS: .. OTHERS AT HOME: NONE. - HAS THE PATIENT BEEN EDUCATED REGARDING HIS/HER PLAN OF CARE?YES HAS THE PATIENT BEEN EDUCATED REGARDING PAIN, THE RISK FOR PAIN, THE IMPORTANCE OF EFFECTIVE PAIN MANAGEMENT, AND THE PAIN ASSESSMENT PROCESS?YES ADVANCE DIRECTIVE ADVANCE DIRECTIVE DISCUSSED WITH PATIENT:YES PT DOES NOT WANT ANY INFORMATION REVIEW OF SYSTEMS CONSTITUTIONAL: ANY RECENT FEVER NO . CHILLS NO . WEIGHT CHANGE OF UNKNOWN REASONS NO . GASTROENTEROLOGY: NEW UNEXPLAINABLE CHANGES IN BOWEL CONTROL NO . CONSTIPATION NO . GENITOURINARY: ANY NEW CHANGE IN BLADDER CONTROL? NO . NEUROLOGY: NEW ONSET DIZZINESS OR NEUROLOGICAL CHANGES NOT MENTIONED NO . NEW NUMBNESS OR PAIN PATTERNS NOT MENTIONED AND PERTINENT TO TODAY'S VISIT NO . CARDIOLOGY: NEW CHEST PRESSURE NO . PATIENT DENIES NO . RESPIRATORY: UNEXPLAINABLE COUGH NO . NEW SHORTNESS OF BREATH NO . VITAL SIGNS WT 225.4 LBS, HT 70 IN, BMI 32.34 INDEX, BP 151/69 MM HG, HR 69 /MIN, RR 18 /MIN, TEMP 98.2 F, OXYGEN SAT % 95%, SAFE IN ENV? (Y/N) YES, NA INITIALS AW 1356T.SHRUTI BUSTOS. EXAMINATION GENERAL EXAMINATION: GENERALAWAKE,ALERT ,PLEASANT . PSYCHAFFECT NORMAL . LUNGS:LUNG GARCIA ARE CLEAR TO AUSCULTATION BILATERALLY. GOOD MOVEMENT OF AIR . HEART:S1, S2 IN A REGULAR RATE AND RHYTHM. NO SIGNIFICANT MURMURS, RUBS OR GALLOPS NOTED . ASSESSMENTS CHRONIC PRESCRIPTION OPIATE USE - Z79.891 (PRIMARY) DEGENERATIVE LUMBAR SPINAL STENOSIS - M48.061 TREATMENT CHRONIC PRESCRIPTION OPIATE USE REFILL HYDROCODONE-ACETAMINOPHEN TABLET, 5-325 MG, 1 TABLET NEEDED, ORALLY, TWICE A DAY IF NEEDED FOR SEVERE PAIN EPISODES MDD2 330 TABS SHOULD LAST 30 DAYS, 30 DAYS, 30 LAB: URINE TEST GROUP ITALIA BAHENAFERNANDO 10/04/2020 2:35:51 PM > LAST DOSE: HYDROCODONE 10/04/2020 NOTES: ISTOP REGISTRY REVIEWED AND DEMONSTRATES COMPLLIANCE. BRINGS IN MEDICATIONS WHICH IS APPROPRIATE FOR WHAT WAS DISPENSED. PROCEDURE CODES FA211 ESTABILISHED PATIENT [facility] CHARGE DISPOSITION & COMMUNICATION FOLLOW UP 3 MONTHS (REASON: MED MGMNT/REVIEW UTOX) ELECTRONICALLY SIGNED BY ORLY SEALS ON 10/06/2020 AT 11:58 AM EDT DISCLAIMER : THIS IS A VISIT SUMMARY EXTRACTED FROM THE [employer] CHART. IT IS NOT A COPY OF THE [employer] PROGRESS NOTE. MTDD
== END ==
LOC: M PAIN 14:00
PROVIDERS: ATTEND Nurse Practitioner Family
DX: M48.061 Spinal stenosis, lumbar region without neurogenic claudication (principal); G89.29 Other chronic pain; E11.9 Type 2 diabetes mellitus without complications; F17.210 Nicotine dependence, cigarettes, uncomplicated; Z86.14 Personal history of Methicillin resistant Staphylococcus aureus infection; Z91.013 Allergy to seafood; Z79.899 Other long term (current) drug therapy

== ENCOUNTER → 2021-01-04 | Outpatient (CLI) | payer MEDICARE | LOC: M PAIN 14:15 | PROVIDERS: ATTEND Anesthesiology | DX: M48.062 Spinal stenosis, lumbar region with neurogenic claudication (principal); M47.816 Spondylosis without myelopathy or radiculopathy, lumbar region; M79.18 Myalgia, other site; F17.210 Nicotine dependence, cigarettes, uncomplicated; Z91.013 Allergy to seafood; Z79.899 Other long term (current) drug therapy ==

== ENCOUNTER → 2021-02-20 | Outpatient (CLI) | payer MEDICARE ==
[2021-02-20 13:22] LABS: BASO # 0.1 10^3/uL (0.0-0.2); EOS # 0.1 10^3/uL (0.0-0.5); EOS % 1.6 % (0.0-3.0); HEMATOCRIT 46.1 % (42.0-52.0); HEMOGLOBIN 15.5 g/dl (13.5-17.5); LYMPH # 0.9 10^3/uL (1.5-5.0); LYMPH % 13.2 % (24.0-44.0); MEAN CORPUSCULAR HEMOGLOBIN 30.4 pg (27.0-33.0); MEAN CORPUSCULAR HGB CONC 33.6 g/dl (32.0-36.5); MEAN CORPUSCULAR VOLUME 90.4 fl (80.0-96.0); MONO # 0.6 10^3/uL (0.0-0.8); MONO % 8.7 % (2.0-8.0); NEUTROPHILS # 5.2 10^3/uL (1.5-8.5); NEUTROPHILS % 74.9 % (36.0-66.0); PLATELET COUNT, AUTOMATED 228 10^3/uL (150-450); WHITE BLOOD COUNT 6.9 10^3/uL (4.0-10.0)
[2021-02-20 13:46] LABS: ALBUMIN 3.6 GM/DL (3.2-5.2); ALT/SGPT 24 U/L (12-78); BILIRUBIN,TOTAL 0.4 MG/DL (0.2-1.0); BLOOD UREA NITROGEN 16 MG/DL (7-18); CALCIUM LEVEL 8.3 MG/DL (8.8-10.2); CARBON DIOXIDE LEVEL 29 MEQ/L (21-32); CHLORIDE LEVEL 106 MEQ/L (98-107); CHOLESTEROL LEVEL 220 MG/DL (<200); FREE T4 0.63 NG/DL (0.76-1.46); GLOMERULAR FILTRATION RATE > 60.0 (>42); GLUCOSE, FASTING 117 MG/DL (70-100); HDL CHOLESTEROL 55 MG/DL (>40); LDL CHOLESTEROL 137 MG/DL (<100); NON-HDL-C 165 MG/DL; POTASSIUM SERUM 4.5 MEQ/L (3.5-5.1); SODIUM LEVEL 139 MEQ/L (136-145); TOTAL PROTEIN 6.8 GM/DL (6.4-8.2); TRIGLYCERIDES LEVEL 139 MG/DL (<150)
[2021-02-20 13:59] LABS: HEMOGLOBIN A1c 5.9 %
== END ==
LOC: M PLALAB 10:50
PROVIDERS: ATTEND Nurse Practitioner Family
DX: E78.5 Hyperlipidemia, unspecified (principal); E11.9 Type 2 diabetes mellitus without complications; Z12.5 Encounter for screening for malignant neoplasm of prostate
CPT/HCPCS: 36415; 80053; 80061; 83036; 84439; 84443; 85025; G0103

== ENCOUNTER → 2021-02-22 | Outpatient (CLI) | payer MEDICARE | LOC: M LABSMTC 11:12 | PROVIDERS: ATTEND Anesthesiology | DX: Z01.812 Encounter for preprocedural laboratory examination (principal); Z20.822 Contact with and (suspected) exposure to COVID-19 ==

== ENCOUNTER → 2021-02-27 | Outpatient (CLI) | payer MEDICARE ==
[~2021-02-27] MED LIST changes: +BUPIVACAINE HCL 0.25% 10ML VIAL As Ordered ONE; +BUPIVACAINE HCL 0.25% 30ML VIAL As Ordered ONE; +TRIAMCINOLONE ACETONIDE SUSP 40 MG/ML VIAL (J3301) As Ordered ONE; +diazePAM 5MG TABLET As Ordered ONE
== END ==
LOC: M PAIN 14:00
PROVIDERS: ATTEND Anesthesiology
DX: M79.18 Myalgia, other site (principal); G47.30 Sleep apnea, unspecified; F17.210 Nicotine dependence, cigarettes, uncomplicated; Z86.14 Personal history of Methicillin resistant Staphylococcus aureus infection; Z91.013 Allergy to seafood; Z79.899 Other long term (current) drug therapy
CPT/HCPCS: 20552; J3301

== ENCOUNTER → 2021-04-20 | Outpatient (CLI) | payer MEDICARE ==
[~2021-04-20] MED LIST changes: -BUPIVACAINE HCL 0.25% 10ML VIAL As Ordered ONE; -BUPIVACAINE HCL 0.25% 30ML VIAL As Ordered ONE; -LISI-898 PO; +LISI5TAB11 PO; -TRIAMCINOLONE ACETONIDE SUSP 40 MG/ML VIAL (J3301) As Ordered ONE; -diazePAM 5MG TABLET As Ordered ONE
== END ==
LOC: M PAIN 10:15
PROVIDERS: ATTEND Anesthesiology
DX: M79.18 Myalgia, other site (principal); M54.50 Low back pain, unspecified; Z86.14 Personal history of Methicillin resistant Staphylococcus aureus infection; F17.210 Nicotine dependence, cigarettes, uncomplicated; Z91.013 Allergy to seafood; Z79.899 Other long term (current) drug therapy

== ENCOUNTER → 2021-07-18 | Outpatient (CLI) | payer MEDICARE | LOC: M PAIN 14:00 | PROVIDERS: ATTEND Nurse Practitioner Family | DX: M51.16 Intervertebral disc disorders with radiculopathy, lumbar region (principal); G89.29 Other chronic pain; F17.210 Nicotine dependence, cigarettes, uncomplicated; Z86.14 Personal history of Methicillin resistant Staphylococcus aureus infection; Z91.013 Allergy to seafood; Z79.899 Other long term (current) drug therapy ==

== ENCOUNTER → 2021-08-22 | Outpatient (CLI) | payer MEDICARE ==
[2021-08-22 13:27] LABS: BASO # 0.1 10^3/uL (0.0-0.2); BASO % 1.1 % (0.0-1.0); EOS # 0.3 10^3/uL (0.0-0.5); EOS % 3.6 % (0.0-3.0); HEMATOCRIT 47.3 % (42.0-52.0); HEMOGLOBIN 15.6 g/dl (13.5-17.5); LYMPH # 1.2 10^3/uL (1.5-5.0); MEAN CORPUSCULAR HEMOGLOBIN 29.9 pg (27.0-33.0); MEAN CORPUSCULAR VOLUME 90.8 fl (80.0-96.0); MONO # 0.7 10^3/uL (0.0-0.8); MONO % 10.6 % (2.0-8.0); NEUTROPHILS # 4.7 10^3/uL (1.5-8.5); PLATELET COUNT, AUTOMATED 211 10^3/uL (150-450); RED BLOOD COUNT 5.21 10^6/uL (4.30-6.10)
[2021-08-22 13:50] LABS: ALBUMIN 3.5 GM/DL (3.2-5.2); ALT/SGPT 23 U/L (12-78); BILIRUBIN,TOTAL 0.4 MG/DL (0.2-1.0); BLOOD UREA NITROGEN 14 MG/DL (7-18); CALCIUM LEVEL 8.8 MG/DL (8.8-10.2); CARBON DIOXIDE LEVEL 27 MEQ/L (21-32); CHLORIDE LEVEL 107 MEQ/L (98-107); CHOLESTEROL LEVEL 201 MG/DL (<200); CHOLESTEROL RISK RATIO 4.187 (<5); CREATININE FOR GFR 1.03 MG/DL (0.70-1.30); FREE T4 0.73 NG/DL (0.76-1.46); GLOMERULAR FILTRATION RATE > 60.0 (>42); GLUCOSE, FASTING 111 MG/DL (70-100); HDL CHOLESTEROL 48 MG/DL (>40); LDL CHOLESTEROL 136 MG/DL (<100); NON-HDL-C 153 MG/DL; POTASSIUM SERUM 4.5 MEQ/L (3.5-5.1); SODIUM LEVEL 138 MEQ/L (136-145); TOTAL PROTEIN 6.6 GM/DL (6.4-8.2); TRIGLYCERIDES LEVEL 84 MG/DL (<150); VITAMIN B12 LEVEL 718 PG/ML (247-911)
[2021-08-22 14:02] LABS: HEMOGLOBIN A1c 6.1 %
== END ==
LOC: M PLALAB 10:09
PROVIDERS: ATTEND Nurse Practitioner Family
DX: R68.89 Other general symptoms and signs (principal); E11.9 Type 2 diabetes mellitus without complications; E78.5 Hyperlipidemia, unspecified; Z12.5 Encounter for screening for malignant neoplasm of prostate
CPT/HCPCS: 36415; 80053; 80061; 82607; 83036; 84439; 84443; 85025; G0103

== ENCOUNTER → 2021-08-30 | Outpatient (CLI) | payer MEDICARE | LOC: M PAIN 14:15 | PROVIDERS: ATTEND Nurse Practitioner Family | DX: M51.16 Intervertebral disc disorders with radiculopathy, lumbar region (principal); G89.29 Other chronic pain; F17.210 Nicotine dependence, cigarettes, uncomplicated; Z86.14 Personal history of Methicillin resistant Staphylococcus aureus infection; Z91.013 Allergy to seafood; Z79.51 Long term (current) use of inhaled steroids; Z79.899 Other long term (current) drug therapy ==

== ENCOUNTER → 2021-11-15 | Outpatient (REF) | payer MEDICARE | LOC: M LAB REF 18:00 | PROVIDERS: ATTEND Surgery | DX: L72.0 Epidermal cyst (principal) ==

== ENCOUNTER → 2022-03-13 | Outpatient (CLI) | payer MEDICARE | LOC: M PAIN 14:15 | PROVIDERS: ATTEND Nurse Practitioner Family | DX: M51.16 Intervertebral disc disorders with radiculopathy, lumbar region (principal); G89.29 Other chronic pain; J44.9 Chronic obstructive pulmonary disease, unspecified; F17.210 Nicotine dependence, cigarettes, uncomplicated; Z86.14 Personal history of Methicillin resistant Staphylococcus aureus infection; Z91.013 Allergy to seafood; Z79.51 Long term (current) use of inhaled steroids; Z79.899 Other long term (current) drug therapy ==

== ENCOUNTER → 2022-06-08 | Outpatient (CLI) | payer MEDICARE | LOC: M LABSMTC 10:45 | PROVIDERS: ATTEND Anesthesiology | DX: Z01.818 Encounter for other preprocedural examination (principal); Z11.52 Encounter for screening for COVID-19 ==

== ENCOUNTER → 2022-06-12 | Outpatient (CLI) | payer MEDICARE ==
[~2022-06-12] MED LIST changes: +ISOVUE-M 300 61% 15ML VIAL As Ordered ONE; +LIDOCAINE 1% SDV 30ML VIAL As Ordered ONE; +methylPREDNISolone SUSP 40MG/ML 1ML VIAL (DEPO MEDROL) As Ordered ONE
== END ==
LOC: M PAIN 13:05
PROVIDERS: ATTEND Anesthesiology
DX: M51.16 Intervertebral disc disorders with radiculopathy, lumbar region (principal); G89.29 Other chronic pain; J44.9 Chronic obstructive pulmonary disease, unspecified; E11.9 Type 2 diabetes mellitus without complications; F17.210 Nicotine dependence, cigarettes, uncomplicated; Z86.14 Personal history of Methicillin resistant Staphylococcus aureus infection; Z91.013 Allergy to seafood; Z79.51 Long term (current) use of inhaled steroids; Z79.899 Other long term (current) drug therapy
CPT/HCPCS: 62323; J1030; Q9967

== ENCOUNTER → 2022-07-17 | Outpatient (CLI) | payer MEDICARE ==
[~2022-07-17] MED LIST changes: -ISOVUE-M 300 61% 15ML VIAL As Ordered ONE; -LIDOCAINE 1% SDV 30ML VIAL As Ordered ONE; -methylPREDNISolone SUSP 40MG/ML 1ML VIAL (DEPO MEDROL) As Ordered ONE
== END ==
LOC: M PAIN 15:15
PROVIDERS: ATTEND Nurse Practitioner Family
DX: M51.16 Intervertebral disc disorders with radiculopathy, lumbar region (principal); G89.29 Other chronic pain; J44.9 Chronic obstructive pulmonary disease, unspecified; F17.210 Nicotine dependence, cigarettes, uncomplicated; Z91.013 Allergy to seafood; Z79.51 Long term (current) use of inhaled steroids; Z79.899 Other long term (current) drug therapy

== ENCOUNTER → 2022-08-21 | Outpatient (CLI) | payer MEDICARE ==
[2022-08-21 17:01] LABS: BASO # 0.1 10^3/uL (0.0-0.2); BASO % 1.1 % (0.0-1.0); EOS # 0.1 10^3/uL (0.0-0.5); EOS % 1.4 % (0.0-3.0); HEMATOCRIT 45.8 % (42.0-52.0); HEMOGLOBIN 15.3 g/dl (13.5-17.5); LYMPH # 1.3 10^3/uL (1.5-5.0); LYMPH % 19.6 % (24.0-44.0); MEAN CORPUSCULAR HEMOGLOBIN 30.4 pg (27.0-33.0); MEAN CORPUSCULAR HGB CONC 33.4 g/dl (32.0-36.5); MEAN CORPUSCULAR VOLUME 90.9 fl (80.0-96.0); MONO # 0.7 10^3/uL (0.0-0.8); MONO % 10.9 % (2.0-8.0); NEUTROPHILS # 4.4 10^3/uL (1.5-8.5); NEUTROPHILS % 66.2 % (36.0-66.0); PLATELET COUNT, AUTOMATED 206 10^3/uL (150-450); RED BLOOD COUNT 5.04 10^6/uL (4.30-6.10); WHITE BLOOD COUNT 6.6 10^3/uL (4.0-10.0)
[2022-08-21 17:31] LABS: ALBUMIN 3.7 G/DL (3.2-5.2); ALKALINE PHOSPHATASE 54 U/L (46-116); ALT/SGPT 22 U/L (7.0-40); AST/SGOT 18 U/L (<34); BILIRUBIN,TOTAL 0.6 MG/DL (0.3-1.2); BLOOD UREA NITROGEN 13 MG/DL (9-23); CALCIUM LEVEL 8.5 MG/DL (8.3-10.6); CARBON DIOXIDE LEVEL 27 MMOL/L (20-31); CHLORIDE LEVEL 107 MMOL/L (98-107); CHOLESTEROL LEVEL 209 MG/DL (<200); CHOLESTEROL RISK RATIO 4.33 (<5); CREATININE FOR GFR 0.85 MG/DL (0.70-1.30); GLOMERULAR FILTRATION RATE > 60.0 (>42); GLUCOSE, FASTING 110 MG/DL (74-106); HDL CHOLESTEROL 48.2 MG/DL (>40); LDL CHOLESTEROL 140.8 MG/DL (<100); NON-HDL-C 160.8 MG/DL; SODIUM LEVEL 138 MMOL/L (136-145); THYROID STIMULATING HORMONE 5.715 uIU/ML (0.55-4.78); TOTAL PROTEIN 6.2 G/DL (5.7-8.2); TRIGLYCERIDES LEVEL 100 MG/DL (<150)
[2022-08-21 17:32] LABS: FREE T4 0.73 NG/DL (0.89-1.76); VITAMIN B12 LEVEL 451 PG/ML (211-911)
[2022-08-21 17:33] LABS: FOLATE 14.77 NG/ML (>5.4)
== END ==
LOC: M PLALAB 14:30
PROVIDERS: ATTEND Nurse Practitioner Family
DX: E11.9 Type 2 diabetes mellitus without complications (principal); E78.5 Hyperlipidemia, unspecified; R68.89 Other general symptoms and signs

== ENCOUNTER → 2022-08-28 | Outpatient (CLI) | payer MEDICARE | LOC: M PAIN 13:45 | PROVIDERS: ATTEND Nurse Practitioner Family | DX: M51.16 Intervertebral disc disorders with radiculopathy, lumbar region (principal); G89.29 Other chronic pain; J44.9 Chronic obstructive pulmonary disease, unspecified; E11.9 Type 2 diabetes mellitus without complications; F17.210 Nicotine dependence, cigarettes, uncomplicated; Z86.14 Personal history of Methicillin resistant Staphylococcus aureus infection; Z91.013 Allergy to seafood; Z79.51 Long term (current) use of inhaled steroids; Z79.899 Other long term (current) drug therapy ==

== ENCOUNTER → 2022-10-03 | Outpatient (CLI) | payer MEDICARE ==
[2022-10-03 17:51] LABS: CREATININE, URINE 187.1 MG/DL; MAU/CREAT RATIO 25.6 MCG/MG (0.0-30.0)
[2022-10-03 17:58] LABS: FREE T4 0.78 NG/DL (0.89-1.76); THYROID STIMULATING HORMONE 3.645 uIU/ML (0.55-4.78)
== END ==
LOC: M PLALAB 13:27
PROVIDERS: ATTEND Nurse Practitioner Family
DX: E03.9 Hypothyroidism, unspecified (principal); E11.9 Type 2 diabetes mellitus without complications

== ENCOUNTER → 2022-10-18 | Outpatient (CLI) | payer MEDICARE ==
[~2022-10-18] MED LIST changes: +ISOVUE-M 300 61% 15ML VIAL As Ordered ONE; +LIDOCAINE 1% SDV 30ML VIAL As Ordered ONE; +dexAMETHasone 10MG/1ML VIAL PRES.FREE As Ordered ONE
== END ==
LOC: M PAIN 14:00
PROVIDERS: ATTEND Anesthesiology
DX: M51.16 Intervertebral disc disorders with radiculopathy, lumbar region (principal); G89.29 Other chronic pain; J44.9 Chronic obstructive pulmonary disease, unspecified; F17.210 Nicotine dependence, cigarettes, uncomplicated; Z91.013 Allergy to seafood; Z79.899 Other long term (current) drug therapy
CPT/HCPCS: 64483; J0665; J1100; Q9967

== ENCOUNTER → 2023-02-20 | Outpatient (CLI) | payer MEDICARE ==
[~2023-02-20] MED LIST changes: -ISOVUE-M 300 61% 15ML VIAL As Ordered ONE; -LIDOCAINE 1% SDV 30ML VIAL As Ordered ONE; -dexAMETHasone 10MG/1ML VIAL PRES.FREE As Ordered ONE
[2023-02-20 17:45] LABS: BASO # 0.1 10^3/uL (0.0-0.2); EOS # 0.2 10^3/uL (0.0-0.5); EOS % 1.7 % (0.0-3.0); HEMOGLOBIN 15.7 g/dl (13.5-17.5); LYMPH # 1.3 10^3/uL (1.5-5.0); LYMPH % 13.1 % (24.0-44.0); MEAN CORPUSCULAR HEMOGLOBIN 30.5 pg (27.0-33.0); MEAN CORPUSCULAR HGB CONC 33.4 g/dl (32.0-36.5); MEAN CORPUSCULAR VOLUME 91.4 fl (80.0-96.0); MONO # 0.9 10^3/uL (0.0-0.8); MONO % 9.4 % (2.0-8.0); NEUTROPHILS # 7.1 10^3/uL (1.5-8.5); PLATELET COUNT, AUTOMATED 213 10^3/uL (150-450); RED BLOOD COUNT 5.14 10^6/uL (4.30-6.10); WHITE BLOOD COUNT 9.7 10^3/uL (4.0-10.0)
[2023-02-20 18:10] LABS: ALBUMIN 3.6 G/DL (3.2-5.2); ALKALINE PHOSPHATASE 69 U/L (46-116); ALT/SGPT 22 U/L (7.0-40); AST/SGOT 21 U/L (<34); BILIRUBIN,TOTAL 0.4 MG/DL (0.3-1.2); BLOOD UREA NITROGEN 19 MG/DL (9-23); CALCIUM LEVEL 8.8 MG/DL (8.3-10.6); CARBON DIOXIDE LEVEL 27 MMOL/L (20-31); CHLORIDE LEVEL 107 MMOL/L (98-107); CHOLESTEROL LEVEL 228 MG/DL (<200); CHOLESTEROL RISK RATIO 5.89 (<5); CREATININE FOR GFR 0.94 MG/DL (0.70-1.30); GLOMERULAR FILTRATION RATE > 60.0 (>42); GLUCOSE, FASTING 99 MG/DL (74-106); HDL CHOLESTEROL 38.7 MG/DL (>40); LDL CHOLESTEROL 123.9 MG/DL (<100); NON-HDL-C 189.3 MG/DL; POTASSIUM SERUM 4.2 MMOL/L (3.5-5.1); SODIUM LEVEL 140 MMOL/L (136-145); TOTAL PROTEIN 6.4 G/DL (5.7-8.2); TRIGLYCERIDES LEVEL 327 MG/DL (<150)
[2023-02-20 18:11] LABS: FREE T4 0.77 NG/DL (0.89-1.76); THYROID STIMULATING HORMONE 11.002 uIU/ML (0.55-4.78)
== END ==
LOC: M PLALAB 15:51
PROVIDERS: ATTEND Nurse Practitioner Family
DX: E11.9 Type 2 diabetes mellitus without complications (principal); Z12.5 Encounter for screening for malignant neoplasm of prostate; E78.5 Hyperlipidemia, unspecified; E03.9 Hypothyroidism, unspecified
CPT/HCPCS: 36415; 80053; 80061; 83036; 84439; 84443; 85025; G0103

== ENCOUNTER → 2023-03-07 | Outpatient (CLI) | payer MEDICARE | LOC: M RAD 10:39 | PROVIDERS: ATTEND Nurse Practitioner Family | DX: E03.9 Hypothyroidism, unspecified (principal) ==

== ENCOUNTER → 2023-03-19 | Outpatient (CLI) | payer MEDICARE | LOC: M PAIN 15:30 | PROVIDERS: ATTEND Nurse Practitioner Family | DX: M51.16 Intervertebral disc disorders with radiculopathy, lumbar region (principal); G89.29 Other chronic pain; F17.210 Nicotine dependence, cigarettes, uncomplicated; Z86.14 Personal history of Methicillin resistant Staphylococcus aureus infection; Z85.810 Personal history of malignant neoplasm of tongue; Z91.013 Allergy to seafood; Z79.899 Other long term (current) drug therapy ==

== ENCOUNTER → 2023-04-20 | Outpatient (CLI) | payer MEDICARE | LOC: M RAD 08:26 | PROVIDERS: ATTEND Nurse Practitioner Family | DX: M51.16 Intervertebral disc disorders with radiculopathy, lumbar region (principal) ==

== ENCOUNTER → 2023-04-26 | Outpatient (CLI) | payer MEDICARE | LOC: M PAIN 11:00 | PROVIDERS: ATTEND Nurse Practitioner Family | DX: M46.1 Sacroiliitis, not elsewhere classified (principal); G89.29 Other chronic pain; J44.9 Chronic obstructive pulmonary disease, unspecified; E11.9 Type 2 diabetes mellitus without complications; E78.5 Hyperlipidemia, unspecified; F17.210 Nicotine dependence, cigarettes, uncomplicated; Z79.890 Hormone replacement therapy; Z79.891 Long term (current) use of opiate analgesic; Z79.899 Other long term (current) drug therapy; Z91.013 Allergy to seafood ==

== ENCOUNTER → 2023-04-29 | Outpatient (CLI) | payer MEDICARE | LOC: M RAD 15:16 | PROVIDERS: ATTEND Nurse Practitioner Family | DX: M46.1 Sacroiliitis, not elsewhere classified (principal); M16.0 Bilateral primary osteoarthritis of hip ==

== ENCOUNTER → 2023-06-03 | Outpatient (CLI) | payer MEDICARE ==
[2023-06-03 14:23] LABS: BASO # 0.1 10^3/uL (0.0-0.2); BASO % 0.7 % (0.0-1.0); EOS # 0.1 10^3/uL (0.0-0.5); EOS % 1.5 % (0.0-3.0); HEMATOCRIT 47.7 % (42.0-52.0); HEMOGLOBIN 16.1 g/dl (13.5-17.5); LYMPH # 0.8 10^3/uL (1.5-5.0); LYMPH % 12.3 % (24.0-44.0); MEAN CORPUSCULAR HEMOGLOBIN 30.4 pg (27.0-33.0); MEAN CORPUSCULAR HGB CONC 33.8 g/dl (32.0-36.5); MEAN CORPUSCULAR VOLUME 90.2 fl (80.0-96.0); MONO # 0.6 10^3/uL (0.0-0.8); MONO % 8.9 % (2.0-8.0); NEUTROPHILS # 5.2 10^3/uL (1.5-8.5); NEUTROPHILS % 76.2 % (36.0-66.0); PLATELET COUNT, AUTOMATED 219 10^3/uL (150-450); RED BLOOD COUNT 5.29 10^6/uL (4.30-6.10); WHITE BLOOD COUNT 6.8 10^3/uL (4.0-10.0)
[2023-06-03 14:46] LABS: CREATININE, URINE 148.6 MG/DL; MAU/CREAT RATIO 16.1 MCG/MG (0.0-30.0)
[2023-06-03 14:48] LABS: ALBUMIN 3.7 G/DL (3.2-5.2); ALKALINE PHOSPHATASE 70 U/L (46-116); ALT/SGPT < 9 U/L (7.0-40); AST/SGOT < 8 U/L (<34); BILIRUBIN,TOTAL 0.7 MG/DL (0.3-1.2); BLOOD UREA NITROGEN 12 MG/DL (9-23); CALCIUM LEVEL 8.7 MG/DL (8.3-10.6); CARBON DIOXIDE LEVEL 28 MMOL/L (20-31); CHLORIDE LEVEL 105 MMOL/L (98-107); CHOLESTEROL LEVEL 142 MG/DL (<200); CHOLESTEROL RISK RATIO 3.12 (<5); CREATININE FOR GFR 0.81 MG/DL (0.70-1.30); GLOMERULAR FILTRATION RATE > 60.0 (>42); GLUCOSE, FASTING 125 MG/DL (74-106); HDL CHOLESTEROL 45.5 MG/DL (>40); LDL CHOLESTEROL 81.1 MG/DL (<100); NON-HDL-C 96.5 MG/DL; POTASSIUM SERUM 3.9 MMOL/L (3.5-5.1); SODIUM LEVEL 138 MMOL/L (136-145); TOTAL PROTEIN 6.3 G/DL (5.7-8.2); TRIGLYCERIDES LEVEL 77 MG/DL (<150)
[2023-06-03 14:50] LABS: FREE T4 0.96 NG/DL (0.89-1.76)
[2023-06-03 14:53] LABS: HEMOGLOBIN A1c 6.1 % (4.0-6.0)
== END ==
LOC: M LAB 13:36
PROVIDERS: ATTEND Nurse Practitioner Family
DX: E11.9 Type 2 diabetes mellitus without complications (principal); E78.5 Hyperlipidemia, unspecified; E03.9 Hypothyroidism, unspecified

== ENCOUNTER 2023-09-25 15:09 | Emergency (ER) | payer MEDICARE ==
[~2023-09-25] VITALS: Ht 177.8 cm; Wt 113.6 kg
[2023-09-25] MEDS ORDERED: TREL1AER (15:21)
[2023-09-25 17:54] VITALS: BP 168/74; TEMP 97.2; O2SAT 97
== END 2023-09-25 17:56 | disposition home or self-care (01) ==
LOC: M ED 15:09
DX: S13.4XXA Sprain of ligaments of cervical spine, initial encounter (principal); W19.XXXA Unspecified fall, initial encounter; M50.322 Other cervical disc degeneration at C5-C6 level; M50.323 Other cervical disc degeneration at C6-C7 level; M51.35 Other intervertebral disc degeneration, thoracolumbar region; J01.20 Acute ethmoidal sinusitis, unspecified; E11.9 Type 2 diabetes mellitus without complications; J44.9 Chronic obstructive pulmonary disease, unspecified; M54.50 Low back pain, unspecified; I10 Essential (primary) hypertension; F17.200 Nicotine dependence, unspecified, uncomplicated; Z91.013 Allergy to seafood; Z91.048 Other nonmedicinal substance allergy status; Z79.4 Long term (current) use of insulin; Z79.02 Long term (current) use of antithrombotics/antiplatelets; Z79.52 Long term (current) use of systemic steroids; Z79.811 Long term (current) use of aromatase inhibitors; Z79.899 Other long term (current) drug therapy; Y92.481 Parking lot as the place of occurrence of the external cause; Y93.89 Activity, other specified; Y99.9 Unspecified external cause status

== ENCOUNTER → 2023-10-10 | Outpatient (CLI) | payer MEDICARE ==
[~2023-10-10] MED LIST changes: +TREL1AER
[2023-10-10 14:08] LABS: BASO # 0.1 10^3/uL (0.0-0.2); BASO % 0.7 % (0.0-1.0); EOS # 0.1 10^3/uL (0.0-0.5); EOS % 0.7 % (0.0-3.0); HEMATOCRIT 47.9 % (42.0-52.0); HEMOGLOBIN 16.1 g/dl (13.5-17.5); LYMPH # 0.9 10^3/uL (1.5-5.0); LYMPH % 7.7 % (24.0-44.0); MEAN CORPUSCULAR HEMOGLOBIN 30.6 pg (27.0-33.0); MEAN CORPUSCULAR HGB CONC 33.6 g/dl (32.0-36.5); MEAN CORPUSCULAR VOLUME 90.9 fl (80.0-96.0); MONO # 0.8 10^3/uL (0.0-0.8); MONO % 6.8 % (2.0-8.0); NEUTROPHILS # 9.9 10^3/uL (1.5-8.5); NEUTROPHILS % 83.4 % (36.0-66.0); PLATELET COUNT, AUTOMATED 225 10^3/uL (150-450); RED BLOOD COUNT 5.27 10^6/uL (4.30-6.10); WHITE BLOOD COUNT 11.8 10^3/uL (4.0-10.0)
[2023-10-10 14:23] LABS: HEMOGLOBIN A1c 6.5 % (4.0-6.0)
[2023-10-10 14:40] LABS: PSA SCREENING 1.03 NG/ML (< 4.00)
[2023-10-10 14:41] LABS: ALBUMIN 3.8 G/DL (3.2-5.2); ALKALINE PHOSPHATASE 74 U/L (46-116); ALT/SGPT 24 U/L (7.0-40); AST/SGOT 19 U/L (<34); BILIRUBIN,TOTAL 0.4 MG/DL (0.3-1.2); BLOOD UREA NITROGEN 17 MG/DL (9-23); CALCIUM LEVEL 9.1 MG/DL (8.3-10.6); CARBON DIOXIDE LEVEL 28 MMOL/L (20-31); CHLORIDE LEVEL 105 MMOL/L (98-107); CHOLESTEROL LEVEL 232 MG/DL (<200); CREATININE FOR GFR 0.95 MG/DL (0.70-1.30); GLOMERULAR FILTRATION RATE > 60.0 (>42); GLUCOSE, FASTING 263 MG/DL (74-106); HDL CHOLESTEROL 40.7 MG/DL (>40); LDL CHOLESTEROL 156.9 MG/DL (<100); NON-HDL-C 191.3 MG/DL; POTASSIUM SERUM 3.8 MMOL/L (3.5-5.1); SODIUM LEVEL 138 MMOL/L (136-145); TOTAL PROTEIN 6.5 G/DL (5.7-8.2); TRIGLYCERIDES LEVEL 172 MG/DL (<150)
[2023-10-10 14:44] LABS: FREE T4 0.75 NG/DL (0.89-1.76)
[2023-10-10 14:45] LABS: THYROID STIMULATING HORMONE 6.809 uIU/ML (0.55-4.78)
== END ==
LOC: M PLALAB 11:08
PROVIDERS: ATTEND Nurse Practitioner Family
DX: E11.9 Type 2 diabetes mellitus without complications (principal); E78.5 Hyperlipidemia, unspecified; E03.9 Hypothyroidism, unspecified; Z12.5 Encounter for screening for malignant neoplasm of prostate
CPT/HCPCS: 36415; 80053; 80061; 83036; 84439; 84443; 85025; G0103

== ENCOUNTER → 2023-10-18 | Outpatient (CLI) | payer MEDICARE | LOC: M PAIN 16:30 | PROVIDERS: ATTEND Nurse Practitioner Family | DX: M51.16 Intervertebral disc disorders with radiculopathy, lumbar region (principal); G89.29 Other chronic pain; F17.210 Nicotine dependence, cigarettes, uncomplicated; Z79.51 Long term (current) use of inhaled steroids; Z79.899 Other long term (current) drug therapy; Z85.828 Personal history of other malignant neoplasm of skin; Z91.013 Allergy to seafood ==

== ENCOUNTER → 2023-12-05 | Outpatient (REF) | payer MEDICARE | LOC: M SFHCPLAZ 17:21 | PROVIDERS: ATTEND Nurse Practitioner Family | DX: Z79.891 Long term (current) use of opiate analgesic (principal) ==

== ENCOUNTER → 2024-02-19 | Outpatient (CLI) | payer MEDICARE ==
[2024-02-19 17:19] LABS: BASO # 0.1 10^3/uL (0.0-0.2); BASO % 0.6 % (0.0-1.0); EOS % 0.1 % (0.0-3.0); HEMOGLOBIN 15.4 g/dl (13.5-17.5); LYMPH # 0.7 10^3/uL (1.5-5.0); LYMPH % 4.7 % (24.0-44.0); MEAN CORPUSCULAR HEMOGLOBIN 30.5 pg (27.0-33.0); MEAN CORPUSCULAR HGB CONC 34.2 g/dl (32.0-36.5); MEAN CORPUSCULAR VOLUME 89.1 fl (80.0-96.0); MONO % 6.3 % (2.0-8.0); NEUTROPHILS # 13.7 10^3/uL (1.5-8.5); NEUTROPHILS % 87.5 % (36.0-66.0); PLATELET COUNT, AUTOMATED 248 10^3/uL (150-450); RED BLOOD COUNT 5.05 10^6/uL (4.30-6.10); WHITE BLOOD COUNT 15.6 10^3/uL (4.0-10.0)
== END ==
LOC: M PLALAB 15:00
PROVIDERS: ATTEND Physician Assistant Medical
DX: J44.1 Chronic obstructive pulmonary disease with (acute) exacerbation (principal); J40 Bronchitis, not specified as acute or chronic

== ENCOUNTER → 2024-03-19 | Outpatient (CLI) | payer MEDICARE ==
[2024-03-19 18:21] LABS: BASO # 0.1 10^3/uL (0.0-0.2); BASO % 1.3 % (0.0-1.0); EOS # 0.1 10^3/uL (0.0-0.5); EOS % 1.5 % (0.0-3.0); HEMATOCRIT 46.2 % (42.0-52.0); HEMOGLOBIN 15.3 g/dl (13.5-17.5); LYMPH # 1.3 10^3/uL (1.5-5.0); LYMPH % 18.6 % (24.0-44.0); MEAN CORPUSCULAR HGB CONC 33.1 g/dl (32.0-36.5); MEAN CORPUSCULAR VOLUME 90.6 fl (80.0-96.0); MONO # 0.7 10^3/uL (0.0-0.8); MONO % 9.4 % (2.0-8.0); NEUTROPHILS # 4.9 10^3/uL (1.5-8.5); NEUTROPHILS % 68.6 % (36.0-66.0); PLATELET COUNT, AUTOMATED 268 10^3/uL (150-450); WHITE BLOOD COUNT 7.1 10^3/uL (4.0-10.0)
[2024-03-19 18:28] LABS: HEMOGLOBIN A1c 6.6 % (4.0-6.0)
[2024-03-19 18:34] LABS: MAU/CREAT RATIO 10.1 MCG/MG (0.0-30.0)
[2024-03-19 18:35] LABS: ALBUMIN 3.5 G/DL (3.2-5.2); ALKALINE PHOSPHATASE 95 U/L (40-129); ALT/SGPT 16 U/L (7.0-40); AST/SGOT 19 U/L (<34); BILIRUBIN,TOTAL 0.6 MG/DL (0.3-1.2); BLOOD UREA NITROGEN 12 MG/DL (9-23); CALCIUM LEVEL 8.9 MG/DL (8.3-10.6); CARBON DIOXIDE LEVEL 28 MMOL/L (20-31); CHLORIDE LEVEL 105 MMOL/L (98-107); CHOLESTEROL LEVEL 170 MG/DL (<200); CHOLESTEROL RISK RATIO 3.79 (<5); CREATININE FOR GFR 0.86 MG/DL (0.70-1.30); GLOMERULAR FILTRATION RATE > 60.0 (>42); GLUCOSE, FASTING 152 MG/DL (74-106); HDL CHOLESTEROL 44.8 MG/DL (>40); LDL CHOLESTEROL 103.8 MG/DL (<100); NON-HDL-C 125.2 MG/DL; POTASSIUM SERUM 4.3 MMOL/L (3.5-5.1); SODIUM LEVEL 139 MMOL/L (136-145); TOTAL PROTEIN 6.6 G/DL (5.7-8.2); TRIGLYCERIDES LEVEL 107 MG/DL (<150)
[2024-03-19 18:37] LABS: FREE T4 0.92 NG/DL (0.89-1.76); THYROID STIMULATING HORMONE 3.542 uIU/ML (0.55-4.78)
== END ==
LOC: M PLALAB 14:44
PROVIDERS: ATTEND Nurse Practitioner Family
DX: E11.9 Type 2 diabetes mellitus without complications (principal)

== ENCOUNTER → 2024-07-30 | Outpatient (CLI) | payer MEDICARE ==
[~2024-07-30] MED LIST changes: -FLOM0.4C39 PO; +TAMS-18 PO
[2024-07-30 17:43] LABS: CREATININE, URINE 99.6 MG/DL
[2024-07-30 18:20] LABS: BASO # 0.1 10^3/uL (0.0-0.2); EOS # 0.1 10^3/uL (0.0-0.5); HEMATOCRIT 50.6 % (42.0-52.0); HEMOGLOBIN 16.5 g/dl (13.5-17.5); LYMPH # 1.2 10^3/uL (1.5-5.0); LYMPH % 13.3 % (24.0-44.0); MEAN CORPUSCULAR HEMOGLOBIN 30.2 pg (27.0-33.0); MEAN CORPUSCULAR HGB CONC 32.6 g/dl (32.0-36.5); MEAN CORPUSCULAR VOLUME 92.5 fl (80.0-96.0); MONO # 0.7 10^3/uL (0.0-0.8); MONO % 7.7 % (2.0-8.0); NEUTROPHILS # 6.8 10^3/uL (1.5-8.5); NEUTROPHILS % 76.3 % (36.0-66.0); PLATELET COUNT, AUTOMATED 224 10^3/uL (150-450); RED BLOOD COUNT 5.47 10^6/uL (4.30-6.10)
[2024-07-30 18:33] LABS: HEMOGLOBIN A1c 6.4 % (4.0-6.0)
[2024-07-30 18:46] LABS: ALBUMIN 3.8 G/DL (3.2-5.2); ALKALINE PHOSPHATASE 76 U/L (40-129); ALT/SGPT 22 U/L (7.0-40); AST/SGOT 21 U/L (<34); BILIRUBIN,TOTAL 0.6 MG/DL (0.3-1.2); BLOOD UREA NITROGEN 15 MG/DL (9-23); CALCIUM LEVEL 8.9 MG/DL (8.3-10.6); CARBON DIOXIDE LEVEL 24 MMOL/L (20-31); CHLORIDE LEVEL 107 MMOL/L (98-107); CHOLESTEROL LEVEL 148 MG/DL (<200); CHOLESTEROL RISK RATIO 3.05 (<5); CREATININE FOR GFR 0.79 MG/DL (0.70-1.30); GLOMERULAR FILTRATION RATE > 90.0 (>42); GLUCOSE, FASTING 95 MG/DL (74-106); HDL CHOLESTEROL 48.4 MG/DL (>40); NON-HDL-C 99.6 MG/DL; POTASSIUM SERUM 4.1 MMOL/L (3.5-5.1); SODIUM LEVEL 143 MMOL/L (136-145); TOTAL PROTEIN 6.5 G/DL (5.7-8.2); TRIGLYCERIDES LEVEL 108 MG/DL (<150)
[2024-07-30 18:47] LABS: THYROID STIMULATING HORMONE 1.533 uIU/ML (0.55-4.78)
[2024-07-30 19:06] LABS: FREE T4 1.06 NG/DL (0.89-1.76)
[2024-08-04 02:06] LABS: AMPHETAMINE SCREEN, URINE Negative ng/mL (Cutoff=1000); BARBITURATES SCREEN, URINE Negative ng/mL (Cutoff=200); BENZODIAZEPINES, URINE SCREEN Negative ng/mL (Cutoff=200); CANNABINOID SCREEN, URINE Negative ng/mL (Cutoff=20); COCAINE SCREEN, URINE Negative ng/mL (Cutoff=300); METHADONE, URINE SCREEN Negative ng/mL (Cutoff=300); OPIATE SCREEN, URINE Negative ng/mL (Cutoff=300); OXYCODONE, SCREEN, URINE Negative ng/mL (Cutoff=100); PCP SCREEN, URINE Negative ng/mL (Cutoff=25); SPECIFIC GRAVITY, URINE 1.016 (.)
== END ==
LOC: M PLALAB 15:57
PROVIDERS: ATTEND Nurse Practitioner Family
DX: E11.9 Type 2 diabetes mellitus without complications (principal); Z79.891 Long term (current) use of opiate analgesic

== ENCOUNTER → 2024-11-30 | Outpatient (REF) | payer MEDICARE | LOC: M SFHCPLAZ 15:18 | PROVIDERS: ATTEND Nurse Practitioner Family | DX: Z53.9 Procedure and treatment not carried out, unspecified reason (principal) ==

== ENCOUNTER → 2024-11-30 | Outpatient (CLI) | payer MEDICARE ==
[2024-11-30 18:19] LABS: BASO # 0.1 10^3/uL (0.0-0.2); BASO % 1.1 % (0.0-1.0); EOS # 0.1 10^3/uL (0.0-0.5); EOS % 1.5 % (0.0-3.0); LYMPH # 1.3 10^3/uL (1.5-5.0); LYMPH % 14.4 % (24.0-44.0); MONO # 1.0 10^3/uL (0.0-0.8); MONO % 10.4 % (2.0-8.0); NEUTROPHILS # 6.5 10^3/uL (1.5-8.5); NEUTROPHILS % 71.1 % (36.0-66.0); PLATELET COUNT, AUTOMATED 269 10^3/uL (150-450)
[2024-11-30 18:33] LABS: ESTIMATED AVERAGE GLUCOSE 148.0 MG/DL (60-110)
[2024-11-30 18:39] LABS: CREATININE, URINE 62.2 MG/DL; MALB URINE SIEMENS 6.0 MG/L; MAU/CREAT RATIO 9.6 MCG/MG (0.0-30.0)
[2024-11-30 18:49] LABS: PSA SCREENING 1.25 NG/ML (< 4.00)
[2024-11-30 18:52] LABS: ALT/SGPT 33.0 U/L (7.0-40); AST/SGOT 26.0 U/L (<34); CALCIUM LEVEL 8.6 MG/DL (8.3-10.6); CARBON DIOXIDE LEVEL 29.0 MMOL/L (20-31); CHLORIDE LEVEL 105.0 MMOL/L (98-107); CHOLESTEROL LEVEL 188.0 MG/DL (<200); CHOLESTEROL RISK RATIO 3.28 (<5); CREATININE FOR GFR 0.85 MG/DL (0.70-1.30); GLOMERULAR FILTRATION RATE 89.5 (>42); LDL CHOLESTEROL 102.5 MG/DL (<100); NON-HDL-C 130.7 MG/DL; POTASSIUM SERUM 5.2 MMOL/L (3.5-5.1); SODIUM LEVEL 140.0 MMOL/L (136-145); TRIGLYCERIDES LEVEL 141.0 MG/DL (<150)
[2024-11-30 18:54] LABS: FREE T4 0.99 NG/DL (0.89-1.76)
== END ==
LOC: M PLALAB 15:46
PROVIDERS: ATTEND Nurse Practitioner Family
DX: E03.9 Hypothyroidism, unspecified (principal); E11.9 Type 2 diabetes mellitus without complications; E78.5 Hyperlipidemia, unspecified; E56.9 Vitamin deficiency, unspecified; Z12.5 Encounter for screening for malignant neoplasm of prostate